=== PATIENT | female | born 1965 | race Caucasian/White ===

== ENCOUNTER → 2017-03-17 | Outpatient (CLI) | payer MEDICARE ==
--- NOTE | 2017-03-21 09:00 | MM ---
Reason for exam: screening (asymptomatic). Last mammogram was performed 2 years and 9 months ago. History: Family history of breast cancer in grandmother and breast cancer in cousin. Taking hormonal contraceptives for 6 months. Physical Findings: A clinical breast exam by your physician is recommended on an annual basis and results should be correlated with mammographic findings. MG Screening Mammo w CAD Bilateral CC and MLO view(s) were taken. Prior study comparison: June 02, 2014, bilateral MG screening mammo w CAD. July 04, 2012, bilateral digital screening mammo w/CAD. The breast tissue is heterogeneously dense. This may lower the sensitivity of mammography. Finding: There are stable typically benign masses in the upper outer quadrant of the right breast. No significant changes in finding since June 02, 2014 and July 04, 2012. ASSESSMENT: Benign, BI-RAD 2 RECOMMENDATION: Routine screening mammogram of both breasts in 1 year.
== END | disposition home or self-care (01) ==
LOC: RADMAMWWP 08:07
PROVIDERS: ATTEND Family Medicine
DX: Z12.31 Encounter for screening mammogram for malignant neoplasm of breast (principal)

== ENCOUNTER → 2017-08-30 | Outpatient (CLI) | payer MEDICARE | END | disposition home or self-care (01) | LOC: MMGSC 13:31 | PROVIDERS: ATTEND Family Medicine | DX: N39.0 Urinary tract infection, site not specified (principal) | CPT/HCPCS: 87086 ==

== ENCOUNTER → 2017-09-14 | Outpatient (CLI) | payer MEDICARE ==
--- NOTE | 2017-09-14 11:53 | MR ---
EXAMINATION TYPE: MR brain/cspine wo/w DATE OF EXAM: 09/14/2017 COMPARISON: Prior cervical MRI 08/30/2010, brain MRI 01/12/2010 HISTORY: headaches, dizziness, sergio weakness, ms TECHNIQUE: Multiplanar, multisequence images of the brain and cervical spine is performed without and with IV co ntrast, utilizing 7.5 mL intravenous Gadavist . FINDINGS: Cervical spine MRI: Multilevel spondylosis is again noted. There is retrolisthesis grade 1 C4-5, C5-6, there is loss of d isc height and signal at C4-5, C5-6 and C6-7 with endplate discogenic marrow signal change. Cervical vertebral bodies show preserved height. Cervical cord signal is normal, cervical medullary junction u nremarkable. No abnormal enhancement following contrast administration. C2-3: Lateral extension of endplate disc complex encroaches mildly on the foramina. No significant ce ntral stenosis or disc herniation. C3-4: Within normal limits C4-5: Posterior extension of endplate disc complex causes moderate to severe central canal stenosis, lateral extension endplate disc complex causes bilateral foraminal encroachment. There is a central p osterior disc herniation present contacting the anterior cervical cord. C5-6: Posterior extension of endplate disc complex causes moderate to severe central canal stenosis, lateral extension of endplate disc complex causes bilateral foraminal encroachment. There is an ante rior contact with the cervical cord due to posterior central disc herniation. C6-7: Posterior extension of endplate disc complex, posterior central disc herniation causes moderate central canal stenosis, there is contact with the anterior cervical cord due to the posterior centra l disc herniation. Lateral extension of endplate disc complex causes some foraminal encroachment bila terally. C7-T1: Circumferential posterior disc bulge causes mild anterior mass effect on the thecal sac. Later al extension endplate disc complex causes some foraminal encroachment bilaterally. IMPRESSION: Progression of patient's degenerative disc disease with multilevel disc herniations, cont act with the cervical cord. Brain MRI: Diffusion weighted images demonstrate no evidence of a recent infarct or other diffusion abnormality. There is no extra-axial fluid collection. There has been progression in the number of white matter in the interval. Largest left frontal lesion is stable measuring approximately 8 by by millimeters on axial image 18 and 9 mm in AP dimension on sagittal image 10, stable. Adjacent to the left lateral v entricle posteriorly there is a lesion measuring 11 mm x 6 mm x 2.1 cm on sagittal image 8, axial im age 16. Left temporal juxtacortical lesion is also stable measuring approximately 9 to 10 mm. The rig ht cerebral peduncle lesion seen on previous exam that measured 9 x 8 mm is not seen with certainty. No abnormal enhancement following contrast administration. There are approximately 10-20 lesions. Marcial e may be better visualized due to differences in technique. The ventricular system and cisternal spac es are normal in size and appearance. The brain volume is age appropriate. Midline structures demonstrate normal morphology. The craniocervical junction appears within normal limits. The dural venous sinuses appear patent. The visualized sinuses are clear and the globes are intact. IMPRESSION: Interval progression in number of lesions however there is improvement in the right middl e cerebellar peduncle lesion as compared to previous exam.
== END | disposition home or self-care (01) ==
LOC: RADMRIMAIN 09:15
PROVIDERS: ATTEND Psychiatry & Neurology Neurology
DX: G93.89 Other specified disorders of brain (principal); M50.30 Other cervical disc degeneration, unspecified cervical region; M50.20 Other cervical disc displacement, unspecified cervical region; G82.22 Paraplegia, incomplete; G35 Multiple sclerosis
CPT/HCPCS: 70553; 72156; A9581

== ENCOUNTER → 2017-09-15 | Outpatient (CLI) | payer MEDICARE ==
--- NOTE | 2017-09-15 12:25 | MR ---
MR thoracic spine with and without contrast HISTORY: G 37, multiple sclerosis, G 82.22, paraplegia Multiplanar multisequence and postcontrast images performed through the thoracic spine following 7.5 cc Gadavist IV. Correlation to prior thoracic MRI dated 02/02/2010 Thoracic vertebral bodies show preserved height, alignment, and bone marrow signal, hemangioma presen t at T8 vertebral body is stable in the superior endplate. There is no evident foraminal encroachment , spinal stenosis, or sizable disc herniation, mild disc bulge present at T10-11 causes only minimal anterior mass effect on the thecal sac. There is mild multilevel minimal disc bulge. Thoracic cord signal is remarkable for some possible increased signal on T2-weighted sequences dorsal aspect of the cord at approximately T8-9 level. Exam is not optimally performed for subtle changes o f cord signal due to [id number]. No abnormal enhancement following contrast administration. Question some abnormal density within the medial aspect of the right lower lobe, possibly atelectatic change. IMPRESSION: Possible signal change within the dorsal thoracic cord as described. Mild degenerative di sc disease.
== END | disposition home or self-care (01) ==
LOC: RADMRIMAIN 09:04
PROVIDERS: ATTEND Psychiatry & Neurology Neurology
DX: M51.34 Other intervertebral disc degeneration, thoracic region (principal); G82.22 Paraplegia, incomplete; G35 Multiple sclerosis
CPT/HCPCS: 72157; A9581

== ENCOUNTER → 2017-12-07 | Outpatient (CLI) | payer MEDICARE ==
[2017-12-07 18:35] LABS: Basophils % (A) 0 %; Eosinophils # (A) 0.4 k/uL (0-0.7); Eosinophils % (A) 5 %; HCT 40.8 % (34.0-46.0); HGB 13.3 gm/dL (11.4-16.0); Lymphocytes # (A) 2.2 k/uL (1.0-4.8); Lymphocytes % (A) 24 %; MCH 30.1 pg (25.0-35.0); MCHC 32.6 g/dL (31.0-37.0); MCV 92.1 fL (80.0-100.0); Mean Platelet Volume 8.4; Monocytes # (A) 0.5 k/uL (0-1.0); Monocytes % (A) 6 %; Neutrophils # (A) 5.9 k/uL (1.3-7.7); Neutrophils % (A) 64 %; Platelet Count 351 k/uL (150-450); RBC 4.43 m/uL (3.80-5.40); RDW 14.5 % (11.5-15.5); WBC 9.2 k/uL (3.8-10.6)
[2017-12-07 18:38] LABS: ALT 25 U/L (9-52); AST 24 U/L (14-36); Albumin 4.6 g/dL (3.5-5.0); Alkaline Phosphatase 73 U/L (38-126); Amylase 37 U/L (30-110); Anion Gap 14 mmol/L; Blood Urea Nitrogen 20 mg/dL (7-17); Carbon Dioxide 24 mmol/L (22-30); Chloride 105 mmol/L (98-107); Cholesterol 228 mg/dL (<200); Glucose 91 mg/dL (74-99); HDL Cholesterol 67 mg/dL (40-60); LDL Cholesterol,Calculated 128 mg/dL (0-99); Lipase 42 U/L (23-300); Potassium 4.4 mmol/L (3.5-5.1); Sodium 143 mmol/L (137-145); Total Bilirubin 0.5 mg/dL (0.2-1.3); Total Protein 7.7 g/dL (6.3-8.2); Triglycerides 165 mg/dL (<150)
[2017-12-07 18:46] LABS: T4, Free (Free Thyroxine) 0.89 ng/dL (0.78-2.19)
== END | disposition home or self-care (01) ==
LOC: MMGSC 10:53
PROVIDERS: ATTEND Family Medicine
DX: I10 Essential (primary) hypertension (principal); E78.5 Hyperlipidemia, unspecified; G35 Multiple sclerosis; R10.13 Epigastric pain
CPT/HCPCS: 36415; 80053; 80061; 82150; 83690; 84439; 84443; 85025

== ENCOUNTER 2018-03-02 09:28 | Day surgery (SDC) | payer MEDICARE ==
[2018-02-27 14:46] VITALS: BMI 30.9
[~2018-03-02 09:28] MED LIST: LACTATED RINGERS 1,000 ML IV SCH; LIDOCAINE 1% 20 ML VIAL (10MG/ML) FOR IV START INTRADERMA PRN
[2018-03-02 10:19] LABS: Glucose,Whole Blood 95 mg/dL (75-99)
[2018-03-02 10:21] VITALS: TEMP 99
[2018-03-02] MEDS ORDERED: LIDOCAINE 1% INJ 10MG/ML (20 ML MDV) ONE (10:52)
[2018-03-02] MEDS ORDERED: PROPOFOL 10 MG/ML 20 ML VIAL IV ONE (10:52)
--- NOTE | 2018-03-02 11:13 | P.PCN ---
Date of Procedure: 03/02/18 Procedure(s) Performed: BRIEF HISTORY: Patient is a 52-year-old pleasant white female, scheduled for an elective colonoscopy as a part of screening for colorectal neoplasia. PROCEDURE PERFORMED: Colonoscopy. PREOPERATIVE DIAGNOSIS: Screening for colon cancer. IV sedation per Anesthesia. PROCEDURE: After informed consent was obtained, the patient, was brought into the endoscopy unit. IV sedation was administered by Anesthesia under continuous monitoring. Digital rectal examination was normal. Initially the Olympus CF- 160 flexible video colonoscope was then inserted in the rectum, gradually advanced into the cecum without any difficulty. Careful examination was performed as the scope was gradually being withdrawn. Ileocecal valve and the appendiceal orifice were visualized and appeared normal. Prep was excellent. Mucosa of the cecum, ascending colon, transverse colon, descending colon, sigmoid colon, and rectum appeared normal. Retroflexion was performed in the rectum and no lesions were seen. The patient tolerated the procedure well. IMPRESSION: Normal-appearing colon from rectum to cecum with no evidence of colorectal neoplasia. RECOMMENDATIONS: Findings of this examination were discussed with the patient is a family. She was advised to have a repeat screening colonoscopy in 10 years.
[2018-03-02 11:17] VITALS: RESP 18
[2018-03-02 11:30] VITALS: BP 150/78; PULSE 78
== END 2018-03-02 12:11 | disposition home or self-care (01) ==
LOC: ORWHC2ENDO 09:28
PROVIDERS: ATTEND Internal Medicine Gastroenterology
DX: Z12.11 Encounter for screening for malignant neoplasm of colon (principal); E78.5 Hyperlipidemia, unspecified; E11.9 Type 2 diabetes mellitus without complications; G35 Multiple sclerosis; K21.9 Gastro-esophageal reflux disease without esophagitis; M79.7 Fibromyalgia; Z79.84 Long term (current) use of oral hypoglycemic drugs; Z79.899 Other long term (current) drug therapy
CPT/HCPCS: 84703; J2001; J2704; G0121

== ENCOUNTER → 2019-05-13 | Outpatient (CLI) | payer MEDICARE ==
--- NOTE | 2019-05-14 09:29 | MM ---
Reason for exam: screening (asymptomatic). Last mammogram was performed 2 years and 2 months ago. History: Family history of breast cancer in grandmother and breast cancer in cousin. Taking hormonal contraceptives for 6 months. Physical Findings: A clinical breast exam by your physician is recommended on an annual basis and results should be correlated with mammographic findings. MG Screening Mammo w CAD Bilateral CC and MLO view(s) were taken. Prior study comparison: March 17, 2017, bilateral MG screening mammo w CAD. June 02, 2014, bilateral MG screening mammo w CAD. The breast tissue is heterogeneously dense. This may lower the sensitivity of mammography. Focal asymmetry upper outer left breast, new. This finding is changed when compared with previous exams. ASSESSMENT: Incomplete: need additional imaging evaluation, BI-RAD 0 RECOMMENDATION: Special view mammogram of the left breast. If lesion persists on supplemental views, image directed ultrasound is recommended. [facility] will attempt to contact patient to return for supplemental views and ultrasound if indicated.
== END | disposition home or self-care (01) ==
LOC: RADMAMWWP 10:46
PROVIDERS: ATTEND Family Medicine
DX: Z12.31 Encounter for screening mammogram for malignant neoplasm of breast (principal)
CPT/HCPCS: 77067

== ENCOUNTER → 2019-05-27 | Outpatient (CLI) | payer MEDICARE ==
--- NOTE | 2019-05-27 13:12 | MM ---
Reason for exam: additional evaluation requested from abnormal screening. Last mammogram was performed less than 1 month ago. History: Family history of breast cancer in maternal grandmother at age 52 and breast cancer in cousin. Took hormonal contraceptives for 6 months. Physical Findings: Nurse did not find any significant physical abnormalities on exam. MG Work Up Mamm w CAD LT Spot compression CC, spot compression MLO, and LM view(s) were taken of the left breast. Prior study comparison: May 13, 2019, bilateral MG screening mammo w CAD. March 17, 2017, bilateral MG screening mammo w CAD. The breast tissue is heterogeneously dense. This may lower the sensitivity of mammography. Left upper outer quadrant middle depth focal asymmetry 5cm from nipple, approximately 7mm in size. These results were verbally communicated with the patient and result sheet given to the patient on 05/27/19 ASSESSMENT: Incomplete: need additional imaging evaluation, BI-RAD 0 RECOMMENDATION: Ultrasound of the left breast.
--- NOTE | 2019-05-27 13:14 | USB ---
Reason for exam: additional evaluation requested from abnormal screening. History: Family history of breast cancer in maternal grandmother at age 52 and breast cancer in cousin. Took hormonal contraceptives for 6 months. US Breast Workup Limited LT Left limited breast ultrasound including focal area of concern, retroareolar and axilla demonstrates a 1.0 x 1.0 x 0.5cm oval, clustered, cystic lesion at 12 o'clock, a 0.4 x 0.4 x 0.4cm oval, clustered, cystic lesion at 12 o'clock, a 0.7 x 1.3 x 0.6cm oval, cystic lesion at 1 o'clock, and a 2.4 x 2.1 x 0.8cm axilla node. Corresponds to mammogram. These results were verbally communicated with the patient and result sheet given to the patient on 05/27/19. ASSESSMENT: Benign, BI-RAD 2 RECOMMENDATION: Return to routine screening mammogram schedule for both breasts.
== END | disposition home or self-care (01) ==
LOC: RADMAMWWP 10:28
PROVIDERS: ATTEND Family Medicine
DX: R92.8 Other abnormal and inconclusive findings on diagnostic imaging of breast (principal)
CPT/HCPCS: 77065

== ENCOUNTER → 2020-04-09 | Outpatient (CLI) | payer MEDICARE ==
--- NOTE | 2020-04-09 15:11 | MR ---
EXAMINATION TYPE: MR brain wo con DATE OF EXAM: 04/09/2020 COMPARISON: MRI brain September 14, 2017. HISTORY: MS follow up TECHNIQUE: Multiplanar, multisequence imaging of the brain and brainstem is performed without IV cont rast. Demyelinating disease protocol. FINDINGS: FINDINGS: T2 Lesions Present : Yes Approximate Number of Lesions: Approximately 15 Locations Identified : Scattered Size of Reference Lesion(s): 1. 0.8 x 0.6 x 0.8 cm on axial image 18 and sagittal image 13 left frontal deep white matter lesions stable. 2 approximately 1.0 x 0.8 x 1.3 cm elongated left parietal temporal lesion near axial image 15 and sa gittal image 10 stable. Enhancing Lesion(s) Present: n/a T1 Hypointense Lesion(s) Present: Yes Change from Prior: Stable Diffusion weighted images demonstrate no evidence of a recent infarct or other diffusion abnormality. There is no worrisome extra-axial fluid collection. The ventricular system and cisternal spaces ar e normal in size and appearance. The brain volume is age appropriate. Midline structures demonstrate normal morphology. The craniocervical junction appears within normal limits. Normal vascular flow voids. The visualized sinuses are clear and the globes are intact. IMPRESSION: [id number] nonspecific white matter changes as detailed above likely on basis of kn own multiple sclerosis. No new lesions or significant interval change.
== END | disposition home or self-care (01) ==
LOC: RADMRIMAIN 14:22
PROVIDERS: ATTEND Psychiatry & Neurology Neurology
DX: R90.82 White matter disease, unspecified (principal)
CPT/HCPCS: 70551

== ENCOUNTER → 2021-08-10 | Outpatient (CLI) | payer MEDICARE ==
--- NOTE | 2021-08-11 11:12 | MM ---
Reason for exam: screening (asymptomatic). Last mammogram was performed 2 years and 2 months ago. History: Family history of breast cancer in maternal grandmother at age 52 and breast cancer in maternal cousin. Took hormonal contraceptives for 6 months. Physical Findings: A clinical breast exam by your physician is recommended on an annual basis and results should be correlated with mammographic findings. MG Screening Mammo w CAD Bilateral CC, MLO, and XCCL view(s) were taken. Prior study comparison: May 13, 2019, bilateral MG screening mammo w CAD. March 17, 2017, bilateral MG screening mammo w CAD. Finding: There are coarse heterogeneous, grouped/clustered calcifications in the right breast. Previous mammotome biopsy in the right breast. New finding since May 13, 2019 and March 17, 2017. ASSESSMENT: Incomplete: need additional imaging evaluation, BI-RAD 0 RECOMMENDATION: Special view mammogram of the right breast. [facility] will attempt to contact patient to return for supplemental views.
== END | disposition home or self-care (01) ==
LOC: RADMAMWWP 16:24
PROVIDERS: ATTEND Family Medicine
DX: Z12.31 Encounter for screening mammogram for malignant neoplasm of breast (principal); Z80.3 Family history of malignant neoplasm of breast
CPT/HCPCS: 77067

== ENCOUNTER → 2021-08-26 | Outpatient (CLI) | payer MEDICARE ==
--- NOTE | 2021-08-30 08:41 | MM ---
Reason for exam: additional evaluation requested from abnormal screening. Last mammogram was performed 1 month ago. History: Family history of breast cancer in maternal grandmother at age 52 and breast cancer in maternal cousin. Took hormonal contraceptives for 6 months. Physical Findings: Nurse did not find any significant physical abnormalities on exam. MG Work Up Mamm w CAD RT LM with magnification, CC with magnification, and LM view(s) were taken of the right breast. Prior study comparison: August 10, 2021, bilateral MG screening mammo w CAD. May 27, 2019, left breast MG work up mamm w CAD LT. The breast tissue is heterogeneously dense. This may lower the sensitivity of mammography. Large group of calcifications around 11 o'clock right breast. Either 2 or 3 site stereotactic biopsy. Calcifications span 4cm. These results were verbally communicated with the patient and result sheet given to the patient on 08/26/21. ASSESSMENT: Suspicious, BI-RAD 4 RECOMMENDATION: Stereotactic core biopsy of the right breast. (2 or 3 site biopsy anterior and posterior group) Called Dr. Garcia's office with mammographic findings and has scheduled an appointment for the patient with Dr. Arias. Office will call with appointment times. 3D stereotactic core biopsy to be performed at [facility]. PRELIMINARY REPORT CALLED AND FAXED TO DR. ARIAS ON 08/30/21.
== END | disposition home or self-care (01) ==
LOC: RADMAMWWP 10:18
PROVIDERS: ATTEND Family Medicine
DX: R92.8 Other abnormal and inconclusive findings on diagnostic imaging of breast (principal); Z80.3 Family history of malignant neoplasm of breast
CPT/HCPCS: 77065

== ENCOUNTER → 2021-11-05 | Outpatient (CLI) | payer MEDICARE ==
[2021-11-05 11:05] VITALS: BP 150/88; PULSE 86; RESP 18; TEMP 97.9
--- NOTE | 2021-11-05 11:52 | P.GSHP ---
History of Present Illness H&P Date: 11/05/21 Chief Complaint: atypical ductal hyperplasia on stereotactic core biopsy of the right breast Lauren is a 56-year-old white female who on routine screening mammogram was noted to have an area of calcification of concern in the right breast. She underwent stereotactic core biopsy and [id number] of 3 sites in the right breast. Site a revealed atypical ductal hyperplasia, site be revealed atypical ductal hyperplasia, and sites C reveal fibroadenomatous and fibrocystic changes. The patient prior to the procedure had not felt any lumps masses or nodules of concern in either breast. She is not complaining of any nipple discharge or skin changes. She did not had any recent trauma or infection in the breast. She did well with the biopsies. Bilateral screening mammogram was from [id number] this revealed coarse heterogeneous group clustered calcifications in the [place] [id number] had additional views of the right breast which revealed calcifications spanning 4 cm. These were around the 11 o'clock position of the right breast. BCP: 15-20 years; stopped 11 years ago hormones: none nicotine: none caffiene: 1 bottle of coke/day chocolate: none Family history: maternal grandmother: breast cancer; about age 50 Hormonal History: menarche: 18 breast fed: yes, first born at 21 menopause: perimenopausal LMP 3 months ago Surgical History: tonsil Medical History: Multiple sclerosis Transverse myelitis Psoriatic arthritis Hypothyroid Diet-controlled diabetes Social history: Nicotine: Negative Alcohol: Negative Drugs: Negative - Constitutional Constitutional: Denies chills, Denies fever - EENT Eyes: denies blurred vision, denies pain Ears: deny: decreased hearing, tinnitus Ears, nose, mouth and throat: Reports headache, Denies sore throat - Breasts Breasts: bilateral: as per HPI - Cardiovascular Cardiovascular: Denies chest pain, Denies shortness of breath - Respiratory Respiratory: Denies cough, Denies 7 - Gastrointestinal Gastrointestinal: Denies abdominal pain, Denies diarrhea, Denies nausea, Denies vomiting - Genitourinary (Female) Genitourinary: Denies dysuria, Denies hematuria - Menstruation Menstruation: Reports as per HPI - Musculoskeletal Comment: Multiple sclerosis, transverse myelitis, psoriatic arthritis Musculoskeletal: Reports as per HPI - Integumentary Integumentary: Denies pruritus, Denies rash - Neurological Neurological: Reports as per HPI - Psychiatric Psychiatric: Denies anxiety, Denies depression - Endocrine Endocrine: Reports as per HPI - Hematologic/Lymphatic Comment: none - Allergic/Immunologic Allergic/Immunologic: Reports seasonal allergies Past Medical History Past Medical History: Diabetes Mellitus, Fibromyalgia, Hyperlipidemia, Neurologic Disorder, Skin Disorder, Thyroid Disorder Additional Past Medical History / Comment(s): Psoriatic arthritis. MS. Hx. tranverse myelitis. "Heart skips a beat once in a blue [place].". new diagnosis of diabetes 04/09/19 History of Any Multi-Drug Resistant Organisms: None Reported Past Surgical History: Tonsillectomy Past Anesthesia/Blood Transfusion Reactions: No Reported Reaction Past Psychological History: No Psychological Hx Reported Smoking Status: Never smoker Past Alcohol Use History: None Reported Past Drug Use History: None Reported - Past Family History Mother Family Medical History: No Reported History Medications and Allergies Home Medications Medication Instructions Recorded Confirmed Type Butalb/Acetaminophen/Caffeine 1 each PO BID PRN 12/17/13 11/05/21 History [Fioricet 50-325-40 mg Tablet] Levothyroxine Sodium [Synthroid] 50 mcg PO DAILY 12/17/13 11/05/21 History Meloxicam 15 mg PO DAILY 12/17/13 11/05/21 History Methotrexate Sodium (Pf) 1 ml INJ WE 12/17/13 11/05/21 History [Methotrexate 250 mg/10 ml Vial] Omeprazole [PriLOSEC] 40 mg PO DAILY 12/17/13 11/05/21 History Oxybutynin Chloride [Oxybutynin 15 mg PO DAILY 12/17/13 11/05/21 History Chloride ER] SUMAtriptan SUCCINATE [Imitrex] 100 mg PO BID PRN 12/17/13 11/05/21 History Simvastatin [Zocor] 40 mg PO DAILY 12/17/13 11/05/21 History metFORMIN HCL 500 mg PO BID 12/17/13 11/05/21 History Baclofen [Lioresal] 10 mg PO QID 11/26/14 11/05/21 History Methylphenidate HCl [Concerta] 54 mg PO DAILY PRN 04/01/16 11/05/21 History Folic Acid 1 mg PO DAILY 02/27/18 11/05/21 History HYDROcodone/APAP 5-325MG [[place] 1 tab PO Q4HR PRN 02/27/18 11/05/21 History 5-325] Metoprolol Succinate (ER) [Toprol 50 mg PO DAILY 12/14/18 11/05/21 History Xl] Empagliflozin [Jardiance] 10 mg PO DAILY 11/05/21 11/05/21 History Allergies Allergy/AdvReac Type Severity Reaction Status Date / Time No Known Allergies Allergy Verified 11/05/21 11:01 Surgical - Exam Vital Signs Temp Pulse Resp BP Pulse Ox 97.9 F 86 18 150/88 98 11/05/21 11:02 11/05/21 11:02 11/05/21 11:02 11/05/21 11:02 11/05/21 11:02 BMI 31.8 - General no distress - Eyes normal ocular movement - ENT no hearing loss - Neck trachea midline - Respiratory normal respiratory effort, clear to auscultation - Cardiovascular Rhythm: regular Heart Sounds: normal: S1, S2 - Abdomen Abdomen: soft, non tender, no guarding, no rigid, no rebound - Integumentary normal turgor - Musculoskeletal uses a walker - Psychiatric oriented to time, oriented to person, oriented to place, speech is normal, memory intact Breast Exam: BRA: 38C inspection: Bilateral grade 2/3 ptosis, right breast slightly larger than left breast Palpation: Right breast: Multiple positional exam fibrocystic changes no discrete dominant masses or nodules of concern, 3 stereotactic core biopsy sites identified clean and dry no evidence of infection slight fullness near the area of the biopsies believed to be related to post biopsy changes Right axilla: No adenopathy of concern Left breast: Multi-positional exam fibrocystic changes no dominant masses or nodules of concern Left axilla: No adenopathy of concern Results Mammogram reviewed in detail with Dr. Gotti Pathology reviewed Assessment and Plan Assessment: Impression: Multiple sclerosis Transverse myelitis Psoriatic arthritis Hypothyroid Diet-controlled diabetes Surgical core biopsy 2 sites in the right breast with atypical hyperplasia third biopsy site benign Plan: needle localization of two areas in the right breast, done via a donut mastopexy, onco-plastic tissue transfer clearance form Dr. Ambrocio Skin benefits of the procedure been discussed with the patient. Risks include but are not limited to bleeding, infection, reaction to the anesthetic.. Concern were not removed and additional biopsy may be necessary. Additionally if this were to be a malignancy or precancer additional surgery may be needed. The patient understands and wishes to proceed. She understands the donut mastopexy she may have some decreased sensation to the nipple areolar area or some necrosis. She also understands that she will have asymmetry and wishes to proceed with this procedure. CC: Dr. Harrison
== END ==
LOC: WWCWWP 10:11
PROVIDERS: ATTEND Surgery
DX: N62 Hypertrophy of breast (principal); D24.1 Benign neoplasm of right breast; E03.9 Hypothyroidism, unspecified; G37.3 Acute transverse myelitis in demyelinating disease of central nervous system; L40.50 Arthropathic psoriasis, unspecified; E11.9 Type 2 diabetes mellitus without complications; E78.5 Hyperlipidemia, unspecified; Z79.890 Hormone replacement therapy; Z79.84 Long term (current) use of oral hypoglycemic drugs

== ENCOUNTER → 2021-12-03 | Outpatient (CLI) | payer MEDICARE ==
[2021-12-03 09:38] VITALS: BP 111/85; PULSE 87; RESP 17; TEMP 97.8
--- NOTE | 2021-12-03 09:55 | P.PN ---
Subjective Progress Note Date: 12/03/21 Principal diagnosis: atypical ductal hyperplasia Lauren is a 56-year-old white female who on routine screening mammogram was noted to have an area of calcification of concern in the right breast. She underwent stereotactic core biopsy on of 3 sites in the right breast. Site A revealed atypical ductal hyperplasia, site B revealed atypical ductal hyperplasia, and sites C reveal fibroadenomatous and fibrocystic changes. The patient prior to the procedure had not felt any lumps masses or nodules of concern in either breast. She was not complaining of any nipple discharge or skin changes. She did not had any recent trauma or infection in the breast. She did well with the biopsies. Bilateral screening mammogram was from [id number] this revealed coarse heterogeneous group clustered calcifications in the right breast. The patient subsequently on had additional views of the right breast which revealed calcifications spanning 4 cm. These were around the 11 o'clock position of the right breast. BCP: 15-20 years; stopped 11 years ago hormones: none nicotine: none caffiene: 1 bottle of coke/day chocolate: none Family history: maternal grandmother: breast cancer; about age 50 Hormonal History: menarche: 18 breast fed: yes, first born at 21 menopause: perimenopausal LMP 3 months ago Surgical History: tonsil Medical History: Multiple sclerosis Transverse myelitis Psoriatic arthritis Hypothyroid Diet-controlled diabetes Social history: Nicotine: Negative Alcohol: Negative Drugs: Negative - Constitutional Constitutional: Denies chills, Denies fever - EENT Eyes: denies blurred vision, denies pain Ears: deny: decreased hearing, tinnitus Ears, nose, mouth and throat: Reports headache, Denies sore throat - Breasts Breasts: bilateral: as per HPI - Cardiovascular Cardiovascular: Denies chest pain, Denies shortness of breath - Respiratory Respiratory: Denies cough - Gastrointestinal Gastrointestinal: Denies abdominal pain, Denies diarrhea, Denies nausea, Denies vomiting - Genitourinary (Female) Genitourinary: Denies dysuria, Denies hematuria - Menstruation Menstruation: Reports as per HPI - Musculoskeletal Comment: Multiple sclerosis, transverse myelitis, psoriatic arthritis Musculoskeletal: Reports as per HPI - Integumentary Integumentary: Denies pruritus, Denies rash - Neurological Neurological: Reports as per HPI - Psychiatric Psychiatric: Denies anxiety, Denies depression - Endocrine Endocrine: Reports as per HPI - Hematologic/Lymphatic Comment: none - Allergic/Immunologic Allergic/Immunologic: Reports seasonal allergies Objective - Vital Signs Vital signs: Vital Signs Temp 97.8 F 12/03/21 09:35 Pulse 87 12/03/21 09:35 Resp 17 12/03/21 09:35 BP 111/85 12/03/21 09:35 Pulse Ox 98 12/03/21 09:35 Intake & Output 12/02/21 12/03/21 12/03/21 18:59 06:59 18:59 Weight 83.915 kg - Exam BMI 31.8 - Constitutional General appearance: Present: cooperative - EENT Eyes: Present: EOMI ENT: Present: hearing grossly normal - Neck Neck: Present: normal ROM - Respiratory Respiratory: bilateral: CTA - Cardiovascular Rhythm: regular Heart sounds: normal: S1, S2 - Integumentary Integumentary: Present: normal turgor - Musculoskeletal Musculoskeletal Comment(s): uses a walker Musculoskeletal: Present: gait normal - Psychiatric Psychiatric: Present: A&O x's 3, appropriate affect, intact judgment & insight - Additional findings Additional findings: Breast Exam: BRA: 38C Inspection: bilateral grade 2/3 ptosis, right breast slightly larger yogesh left breast Palpation: right breast: multipositional exam no dominate [place] or nodules of concern, biopsy sites no infection right axilla: no adenopathy of concern left breast: multipositional exam no dominate [place] or nodules of concern left axilla: no adenopathy of concern Assessment and Plan Assessment: Impression: Multiple sclerosis Transverse myelitis Psoriatic arthritis Hypothyroid Diet-controlled diabetes core biopsy of two sites in the right breast atypical hyperplasia Plan: needle localization of two areas in the right breast, done via a donut mastopexy incision, possible onco-plastic tissue transfer 12:00 anterior secure tonya clip is site A Mid breast barbell-shaped clip this site B 10:00 posterior secure tonya clip is site C Site A and Site B are the 2 sites for which excision is going to be performed clearance from Dr. Ambrocio The patient is going to have a stress test done week, as per Dr. Cuevas. Risks and benefits of the procedure were discussed with the patient. She understands and wishes to proceed. Risks include but are not limited to bleeding, infection, reaction to the anesthetic. The risks that the area of concern may not be adequately sampled is noted and if this will the case it may be necessary to do further surgery. CC: Dr. Ambrocio
== END ==
LOC: WWCWWP 09:26
PROVIDERS: ATTEND Surgery
DX: N60.91 Unspecified benign mammary dysplasia of right breast (principal); G35 Multiple sclerosis; E03.9 Hypothyroidism, unspecified; E11.9 Type 2 diabetes mellitus without complications; L40.50 Arthropathic psoriasis, unspecified

== ENCOUNTER → 2021-12-09 | Outpatient (CLI) | payer MEDICARE ==
[~2021-12-09] MED LIST changes: -LACTATED RINGERS 1,000 ML IV SCH; -LIDOCAINE 1% 20 ML VIAL (10MG/ML) FOR IV START INTRADERMA PRN; +REGADENOSON 0.4 MG/5 ML SYRINGE IV ONE
--- NOTE | 2021-12-09 11:31 | CA ---
Lexiscan Nuclear Stress Test Report Name: Lauren Darden Exam Date: 12/09/2021 10:37 Exam Location: [facility] Stress Ht (in): 64 Wt (lb): 185 BSA: 1.89 Ordering Phys: Lety Garcia MD Referring Phys: MAR, Technologist: Arturo Preston Age: 56 Gender: F : 1965 Procedure CPT: Indications: R94.31 ABNORMAL EKG ICD-10 Codes: Patient History: ABNORMAL EKG Medications: Meds past 24 hrs: Pretest Chest Pain: STRESS TEST Lexiscan Protocol Exercise Duration (min:sec): 02:[address] Depressions (mm): Angina Score: Price Score: Resting HR (bpm): 97 Peak HR (bpm): 133 Resting BP (mmHg): 130 / 74 Peak BP (mmHg): 157 / 76 MPHR: 166 Target HR: 141 % MPHR: 80 METS: 1.0 Total Dose: Peak Dose: Atropine: Double Product: 40262 BP Response: Stress Termination: Stress Symptoms: SHORT OF BREATH, JAW DISCOMFORT Stress Summary: ECG ANALYSIS Resting ECG: Stress ECG: CONCLUSIONS Baseline EKG revealed normal sinus rhythm with minor nonspecific ST and T wave abnormality. With Lexiscan administration of the heart rate changed from 88-134 bpm. Patient seems to have been a short run of paroxysmal atrial tachycardia that seemed to persist on 2 EKGs and then came back to sinus rhythm at [address] segment changes.. EKG part of the stress test is probably considered abnormal artery local. There were minor EKG changes of a nonspecific type and also patient developed paroxysmal atrial tachycardia.. The nuclear scan results which are more pertinent will be reported by the radiologist Dr. Andi Meyer MD (Electronically Signed) Final Date: 09 December 2021 11:30
--- NOTE | 2021-12-09 12:41 | NM ---
EXAMINATION TYPE: NM stress lexiscan cardiolite DATE OF EXAM: 12/09/2021 COMPARISON: None HISTORY: Abnormal EKG TECHNIQUE: After the intravenous administration of 9.55 mCi Tc 99m Sestamibi - Cardiolite resting SP ECT images acquired 50 minutes post injection. The patient received 0.4mg Lexiscan, 25.5 mCi Tc 99m Sestamibi - Stress images obtained [address] injection FINDINGS: Review of stress and rest SPECT images demonstrates no distinct perfusion abnormality. Gated analysi s shows normal wall motion with an estimated left ventricular ejection fraction of 66 %. IMPRESSION: No scintigraphic evidence for reversible ischemia. Consider echocardiographic correlation for elevate d ejection fraction
== END | disposition home or self-care (01) ==
LOC: RADNMMAIN 09:02
PROVIDERS: ATTEND Family Medicine
DX: I47.1 Supraventricular tachycardia (principal)
CPT/HCPCS: 93017; 78452; A9500; J2785

== ENCOUNTER 2021-12-14 08:34 | Day surgery (SDC) | payer MEDICARE ==
--- NOTE | 2021-12-10 08:06 | P.PN ---
Subjective Progress Note Date: 12/10/21 Principal diagnosis: Atypical ductal hyperplasia on core biopsy of the right breast H&P Date: 11/05/21 Chief Complaint: atypical ductal hyperplasia on stereotactic core biopsy of the right breast Lauren is a 56-year-old white female who on routine screening mammogram was noted to have an area of calcification of concern in the right breast. [place] [id number] of 3 sites in the right breast. Site A revealed atypical ductal hyperplasia, site B revealed atypical ductal hyperplasia, and sites C reveal fibroadenomatous and fibrocystic changes. The patient prior to the procedure had not felt any lumps masses or nodules of concern in either breast. She is not complaining of any nipple discharge or skin changes. She did not had any recent trauma or infection in the breast. She did well with the biopsies. Bilateral screening mammogram was from [id number] this revealed coarse heterogeneous group clustered calcifications in the [place] [address] had additional views of the right breast which revealed calcifications spanning 4 cm. These were around the 11 o'clock position of the right breast. BCP: 15-20 years; stopped 11 years ago hormones: none nicotine: none caffiene: 1 bottle of coke/day chocolate: none Family history: maternal grandmother: breast cancer; about age 50 Hormonal History: menarche: 18 breast fed: yes, first born at 21 menopause: perimenopausal LMP 3 months ago Surgical History: tonsil Medical History: Multiple sclerosis Transverse myelitis Psoriatic arthritis Hypothyroid Diet-controlled diabetes Social history: Nicotine: Negative Alcohol: Negative Drugs: Negative - Constitutional Constitutional: Denies chills, Denies fever - EENT Eyes: denies blurred vision, denies pain Ears: deny: decreased hearing, tinnitus Ears, nose, mouth and throat: Reports headache, Denies sore throat - Breasts Breasts: bilateral: as per HPI - Cardiovascular Cardiovascular: Denies chest pain, Denies shortness of breath - Respiratory Respiratory: Denies cough - Gastrointestinal Gastrointestinal: Denies abdominal pain, Denies diarrhea, Denies nausea, Denies vomiting - Genitourinary (Female) Genitourinary: Denies dysuria, Denies hematuria - Menstruation Menstruation: Reports as per HPI - Musculoskeletal Comment: Multiple sclerosis, transverse myelitis, psoriatic arthritis Musculoskeletal: Reports as per HPI - Integumentary Integumentary: Denies pruritus, Denies rash - Neurological Neurological: Reports as per HPI - Psychiatric Psychiatric: Denies anxiety, Denies depression - Endocrine Endocrine: Reports as per HPI - Hematologic/Lymphatic Comment: none - Allergic/Immunologic Allergic/Immunologic: Reports seasonal allergies Past Medical History Past Medical History: Diabetes Mellitus, Fibromyalgia, Hyperlipidemia, Neurologic Disorder, Skin Disorder, Thyroid Disorder Additional Past Medical History / Comment(s): Psoriatic arthritis. MS. Hx. tranverse myelitis. "Heart skips a beat once in a blue [place].". new diagnosis of diabetes 04/09/19 History of Any Multi-Drug Resistant Organisms: None Reported Past Surgical History: Tonsillectomy Past Anesthesia/Blood Transfusion Reactions: No Reported Reaction Past Psychological History: No Psychological Hx Reported Smoking Status: Never smoker Past Alcohol Use History: None Reported Past Drug Use History: None Reported - Past Family History Mother Family Medical History: No Reported History Medications and Allergies Home Medications Medication Instructions Recorded Confirmed Type Butalb/Acetaminophen/Caffeine 1 each PO BID PRN 12/17/13 11/05/21 History [Fioricet 50-325-40 mg Tablet] Levothyroxine Sodium [Synthroid] 50 mcg PO DAILY 12/17/13 11/05/21 History Meloxicam 15 mg PO DAILY 12/17/13 11/05/21 History Methotrexate Sodium (Pf) 1 ml INJ WE 12/17/13 11/05/21 History [Methotrexate 250 mg/10 ml Vial] Omeprazole [PriLOSEC] 40 mg PO DAILY 12/17/13 11/05/21 History Oxybutynin Chloride [Oxybutynin 15 mg PO DAILY 12/17/13 11/05/21 History Chloride ER] SUMAtriptan SUCCINATE [Imitrex] 100 mg PO BID PRN 12/17/13 11/05/21 History Simvastatin [Zocor] 40 mg PO DAILY 12/17/13 11/05/21 History metFORMIN HCL 500 mg PO BID 12/17/13 11/05/21 History Baclofen [Lioresal] 10 mg PO QID 11/26/14 11/05/21 History Methylphenidate HCl [Concerta] 54 mg PO DAILY PRN 04/01/16 11/05/21 History Folic Acid 1 mg PO DAILY 02/27/18 11/05/21 History HYDROcodone/APAP 5-325MG [[place] 1 tab PO Q4HR PRN 02/27/18 11/05/21 History 5-325] Metoprolol Succinate (ER) [Toprol 50 mg PO DAILY 12/14/18 11/05/21 History Xl] Empagliflozin [Jardiance] 10 mg PO DAILY 11/05/21 11/05/21 History Allergies Allergy/AdvReac Type Severity Reaction Status Date / Time No Known Allergies Allergy Verified 11/05/21 11:01 Assessment and Plan Assessment: Impression: Multiple sclerosis Transverse myelitis Psoriatic arthritis Hypothyroid Diet-controlled diabetes Surgical core biopsy 2 sites in the right breast with atypical hyperplasia third biopsy site benign Plan: needle localization of two areas in the right breast, done via a donut mastopexy, onco-plastic tissue transfer clearance form Dr. Ambrocio Skin benefits of the procedure been discussed with the patient. Risks include but are not limited to bleeding, infection, reaction to the anesthetic.. Concern were not removed and additional biopsy may be necessary. Additionally if this were to be a malignancy or precancer additional surgery may be needed. The patient understands and wishes to proceed. She understands the donut mastopexy she may have some decreased sensation to the nipple areolar area or some necrosis. She also understands that she will have asymmetry and wishes to proceed with this procedure. CC: Dr. Harrison Additional CC's: Lety Garcia Objective - Constitutional General appearance: Present: cooperative - EENT Eyes: Present: EOMI - Neck Neck: Present: normal ROM - Respiratory Respiratory: bilateral: CTA - Cardiovascular Heart sounds: normal: S1, S2 - Gastrointestinal General gastrointestinal: Present: soft - Integumentary Integumentary: Present: normal turgor - Musculoskeletal Musculoskeletal Comment(s): uses a walker - Psychiatric Psychiatric: Present: A&O x's 3, appropriate affect, intact judgment & insight - Additional findings Additional findings: Breast Exam: BRA: 38C inspection: Bilateral grade 2/3 ptosis, right breast slightly larger than left breast Palpation: Right breast: Multiple positional exam fibrocystic changes no discrete dominant masses or nodules of concern, 3 stereotactic core biopsy sites identified clean and dry no evidence of infection slight fullness near the area of the biopsies believed to be related to post biopsy changes Right axilla: No adenopathy of concern Left breast: Multi-positional exam fibrocystic changes no dominant masses or nodules of concern Left axilla: No adenopathy of concern Assessment and Plan Assessment: Assessment and Plan Assessment: Impression: Multiple sclerosis Transverse myelitis Psoriatic arthritis Hypothyroid Diet-controlled diabetes Surgical core biopsy 2 sites in the right breast with atypical hyperplasia third biopsy site benign Plan: needle localization of two areas in the right breast, done via a donut mastopexy, onco-plastic tissue transfer clearance form Dr. Ambrocio 12:00 anterior secure tonya clip this site a Mid-breast barbell-shaped clip this site B 10:00 posterior secure tonya clip is site C Site a inside beer the 2 sites for which excision is going to be performed Skin benefits of the procedure been discussed with the patient. Risks include but are not limited to bleeding, infection, reaction to the anesthetic.. Concern were not removed and additional biopsy may be necessary. Additionally if this were to be a malignancy or precancer additional surgery may be needed. The patient understands and wishes to proceed. She understands the donut mastopexy she may have some decreased sensation to the nipple areolar area or some necrosis. She also understands that she will have asymmetry and wishes to proceed with this procedure. awaiting results of stress test CC: Dr. Harrison
[2021-12-10 12:36] VITALS: BMI 31.7
[~2021-12-14 08:34] MED LIST changes: +DEXAMETHASONE SOD PHOSPHATE 4 MG/ML 1 ML VIAL IV ONE; +HEPARIN SODIUM,PORCINE/PF 5,000 UNIT/0.5 ML SYRINGE SQ PRN; +HYDROmorphone 0.5 MG/0.5 ML SYRINGE IVP PRN; +LACTATED RINGERS 1,000 ML IV SCH; +LIDOCAINE 1% (10MG/ML) FOR IV START INTRADERMA PRN; +MIDAZOLAM 2 MG/2 ML VIAL IV PRN; +ONDANSETRON 4 MG/2 ML VIAL IVP PRN; +Pre Op ABX Message 1 EACH MISC MISCELLANE ONE; -REGADENOSON 0.4 MG/5 ML SYRINGE IV ONE; +SCOPOLAMINE 1 MG/72 HR PATCH TRANSDERM ONE
[2021-12-14 09:22] LABS: Glucose,Whole Blood 130 mg/dL (75-99)
[2021-12-14] MEDS ORDERED: ALPRAZolam 0.5 MG TAB ONE (09:36)
[2021-12-14] MEDS ORDERED: ALPRAZolam 0.5 MG TAB PO ONE (09:37)
[2021-12-14] MEDS ORDERED: LIDOCAINE 1% INJ 10MG/ML (20 ML MDV) SQ ONE ×3 (10:10→13:17)
[2021-12-14] MEDS ORDERED: SUCCINYLCHOLINE CHLORIDE 100 MG/5 ML SYR IV ONE (11:38)
[2021-12-14] MEDS ORDERED: PROPOFOL 10 MG/ML 20 ML VIAL IV ONE (11:38)
[2021-12-14] MEDS ORDERED: LIDOCAINE 2% INJ 20 MG/ML (2 ML VIAL) ONE (11:38)
[2021-12-14] MEDS ORDERED: fentaNYL (PF) 50 MCG/ML 2 ML AMP ONE (11:38)
[2021-12-14] MEDS ORDERED: MIDAZOLAM 2 MG/2 ML VIAL ONE (11:38)
[2021-12-14] MEDS ORDERED: SODIUM CHLORIDE 0.9% 50 ML with ceFAZolin 2,000 MG IV ONE ×2 (11:42)
--- NOTE | 2021-12-14 13:09 | MM ---
EXAM: Needle localization with wire placement. CLINICAL HISTORY: Biopsy-proven ADH 2 levels in the right breast TECHNIQUE: Needle localization with wire placement and surgical excision of 2 areas of concern in the right breast. COMPARISON: Prior outside mammogram October 21, 2021 and older studies FINDINGS: The procedure of needle localization with wire placement and than surgical excision was exp lained to the patient. Benefits, alternatives, and risks were discussed. An informed consent was th en obtained. Imaging is reviewed prior to procedure. Atypical results involve the anterior and central clip with b enign results involving the posterior clip. Shortest pathway for procedure was chosen. Shortest path way was cranial approach. The overlying skin was prepped and draped in usual sterile fashion. Lidocai ne is used as anesthetic into the skin and subcutaneous tissue up to the level of area of concern. A 5 cm needle was used for the anterior clip and a 7 cm needle was used for the middle clip. It was p laced via a cranial to caudal approach under mammographic guidance. Subsequent 90 degrees mammogram show the needles to be in satisfactory position relative to the targeted area. At this point, wires was placed and the needles were withdrawn. The wires was fixed to patient's skin. Images were marke d for surgeon. The patient tolerated the procedure well without any immediate complication. The patient was kept in the radiology department for short stay after the procedure and then taken to surgery for surgical e xcision. Targeted biopsy clips and wires are identified in single specimen mammogram. The patient wa s kept in hospital for short stay after the procedure and then discharged home in stable condition. IMPRESSION: Successful, uncomplicated needle localization with wire placement and surgical excision o f 2 areas of concern targeted biopsy clips in the right breast, full pathology results to follow.
--- NOTE | 2021-12-14 13:22 | P.PCN ---
Date of Procedure: 12/14/21 Preoperative Diagnosis: 2 areas of atypia on core biopsy of the right breast Postoperative Diagnosis: Same Procedure(s) Performed: Needle localization of 2 areas of concern on the right breast, excisional biopsy, crescent mastopexy, onco-plastic tissue transfer 56.75 cm Anesthesia: KARENA Surgeon: Lacie Arias Estimated Blood Loss (ml): 20 IV fluids (ml): 700 Pathology: other (Breast tissue) Condition: stable Disposition: same day Indications for Procedure: Core biopsy revealing atypia of 2 sites in the right breast Operative Findings: Dense breast tissue Description of Procedure: Lauren is a 56-year-old white female who underwent core biopsy of 3 areas of concern in the right breast. Then revealed atypia. She is going to undergo a right breast needle localization of the 2 areas of atypia with resection in the operating room. The patient was first seen in the radiology department. Needle localization of the 2 areas of atypia was performed. The patient was then brought to the p reoperative area. In the preoperative area she was marked for a mastopexy. The elevation of the areolar was 2 cm up from the meridian line. Following this the patient was brought to the operative suite. Following induction of anesthesia the right breast was prepped and draped in a sterile fashion. A crescent mastopexy incision was utilized. Was not necessary to do a total doughnut mastopexy. The skin was de-epithelialized. The parenchyma of the breast was entered at the superior aspect of the incision. This was dissected to the 2 shafts of the needles. The surrounding tissue was excised. Excision occurred down to the area of the pectoralis muscle. The tissue excised was 5.2 x 2.5 cm 413.75 cm. Following this the specimen was painted for orientation and radiograph revealed the areas of concern about removed. The wound was well irrigated. Titanium clips were placed. A medial patellar was performed which was 7 cm x 4 cm. A lateral patellar was formed which is 5 cm x 3 cm. The wound was again examined for hemostasis. Surgicel and pyriform was placed. After assured that hemostasis was attained the 2 pillars were brought together to close the defect using 3-0 Vicryl suture. The mastopexy incision was then closed in layers using 3-0 Vicryl suture followed by 4-0 Monocryl. This was followed by a 4-0 nylon suture. All instrument and sponge counts were correct at the end of the case.
--- NOTE | 2021-12-14 13:23 | P.DS ---
Providers Attending physician: Lacie Arias Primary care physician: Lety Garcia Plan - Discharge Summary Discharge Rx Participant: No New Discharge Prescriptions: No Action Levothyroxine Sodium [Synthroid] 50 mcg PO DAILY Meloxicam 15 mg PO DAILY Oxybutynin Chloride [Oxybutynin Chloride ER] 15 mg PO DAILY Simvastatin [Zocor] 40 mg PO DAILY Butalb/Acetaminophen/Caffeine [Fioricet 50-325-40 mg Tablet] 1 each PO BID PRN PRN Reason: Headache SUMAtriptan SUCCINATE [Imitrex] 100 mg PO BID PRN PRN Reason: Migraine Headache Methotrexate Sodium (Pf) [Methotrexate 250 mg/10 ml Vial] 1 ml INJ WE Omeprazole [PriLOSEC] 40 mg PO DAILY Baclofen [Lioresal] 10 mg PO QID Methylphenidate HCl [Concerta] 54 mg PO DAILY PRN PRN Reason: See Comments Folic Acid 1 mg PO DAILY HYDROcodone/APAP 5-325MG [Sidney 5-325] 1 tab PO Q4HR PRN PRN Reason: Pain Metoprolol Succinate (ER) [Toprol Xl] 50 mg PO DAILY sitaGLIPtin [Januvia] 50 mg PO DAILY metFORMIN HCL [Glucophage] 1,000 mg PO BID Discharge Medication List Butalb/Acetaminophen/Caffeine [Fioricet 50-325-40 mg Tablet] 1 each PO BID PRN 12/17/13 [History] Levothyroxine Sodium [Synthroid] 50 mcg PO DAILY 12/17/13 [History] Meloxicam 15 mg PO DAILY 12/17/13 [History] Methotrexate Sodium (Pf) [Methotrexate 250 mg/10 ml Vial] 1 ml INJ WE 12/17/13 [History] Omeprazole [PriLOSEC] 40 mg PO DAILY 12/17/13 [History] Oxybutynin Chloride [Oxybutynin Chloride ER] 15 mg PO DAILY 12/17/13 [History] SUMAtriptan SUCCINATE [Imitrex] 100 mg PO BID PRN 12/17/13 [History] Simvastatin [Zocor] 40 mg PO DAILY 12/17/13 [History] Baclofen [Lioresal] 10 mg PO QID 11/26/14 [History] Methylphenidate HCl [Concerta] 54 mg PO DAILY PRN 04/01/16 [History] Folic Acid 1 mg PO DAILY 02/27/18 [History] HYDROcodone/APAP 5-325MG [S[place]ney 5-325] 1 tab PO Q4HR PRN 02/27/18 [History] Metoprolol Succinate (ER) [Toprol Xl] 50 mg PO DAILY 12/14/18 [History] metFORMIN HCL [Glucophage] 1,000 mg PO BID 12/10/21 [History] sitaGLIPtin [Januvia] 50 mg PO DAILY 12/10/21 [History] Follow up Appointment(s)/Referral(s): Lacie Arias MD [STAFF PHYSICIAN] - 12/23/21 1:40 pm Activity/Diet/Wound Care/Special Instructions: May shower after [address] until seen by Dr. Pyle Wear bra at all times Discharge Disposition: HOME SELF-CARE
[2021-12-14 13:46] VITALS: TEMP 97.4
[2021-12-14 14:00] VITALS: RESP 16
[2021-12-14 15:30] VITALS: BP 128/81; PULSE 68
== END 2021-12-14 15:51 | disposition home or self-care (01) ==
LOC: OR 08:34
PROVIDERS: ATTEND Surgery
DX: N60.91 Unspecified benign mammary dysplasia of right breast (principal); E03.9 Hypothyroidism, unspecified; E11.9 Type 2 diabetes mellitus without complications; E78.5 Hyperlipidemia, unspecified; G35 Multiple sclerosis; L40.50 Arthropathic psoriasis, unspecified; M79.7 Fibromyalgia; Z79.1 Long term (current) use of non-steroidal anti-inflammatories (NSAID); Z79.84 Long term (current) use of oral hypoglycemic drugs; Z79.899 Other long term (current) drug therapy; Z80.3 Family history of malignant neoplasm of breast
CPT/HCPCS: 19281; 19282; 14001; 19125; 19316; 81025; 88307; 76098; C1819 ×2; J2250; J1100; J2405; J0690; J2001 ×2; J3010; J0330; J2704; J1170; J1644

== ENCOUNTER → 2021-12-23 | Outpatient (CLI) | payer MEDICARE ==
[2021-12-23 13:56] VITALS: BP 137/75; PULSE 81; RESP 17; TEMP 98.9
--- NOTE | 2021-12-23 14:07 | P.PN ---
Progress Note - Text Progress Note Date: 12/23/21 Ivelisse is a 56 year old white female status post right breast lumpectomy on 12-14-21 which was benign. Pathology revealed flat epithelial atypia, margins negative, focal atypical lobular hyperplasia background fibrocystic changes. Exam: Lungs: Clear Heart: Regular rate and rhythm Incision: Clean and dry with some mild ecchymosis Impression: Patient doing well postop Plan: Suture removal Repeat right breast mammogram in 6 months with physician exam at that time CC: Dr. Garcia
== END ==
LOC: WWCWWP 13:29
PROVIDERS: ATTEND Surgery
DX: N60.91 Unspecified benign mammary dysplasia of right breast (principal)

== ENCOUNTER → 2022-04-29 | Outpatient (CLI) | payer MEDICARE ==
[2022-04-29 12:50] VITALS: BP 139/87; PULSE 73; RESP 16; TEMP 98.1
--- NOTE | 2022-04-29 12:59 | P.PN ---
Subjective Progress Note Date: 04/29/22 Principal diagnosis: flat epithelial atypia/atypical hyperplasia right breast atypical ductal hyperplasia Lauren is a 56-year-old white female who on routine screening mammogram was noted to have an area of calcification of concern in the right breast. She underwent stereotactic core biopsy on of 3 sites in the right breast. Site A revealed atypical ductal hyperplasia, site B revealed atypical ductal hyperplasia, and sites C reveal fibroadenomatous and fibrocystic changes. The patient prior to the procedure had not felt any lumps masses or nodules of concern in either breast. She was not complaining of any nipple discharge or skin changes. She did not had any recent trauma or infection in the breast. She did well with the biopsies. Bilateral screening mammogram was from [id number] revealed coarse heterogeneous group clustered calcifications in the right breast. The patient subsequently on had additional views of the right breast which revealed calcifications spanning 4 cm. These were around the 11 o'clock position of the right breast. She had a right breast needle localization and lumpectomh on 12-14-21. Her pathology revealed Flat epithelial atypia, and focal ALH. Both stero biopsy sites of concern were removed. She noted a lump at the site of the biopsy for about 3 months. It flucuates in size. It is not tender. She has not had any fever or chills. BCP: 15-20 years; stopped 11 years ago hormones: none nicotine: none caffiene: 1 bottle of coke/day chocolate: none Family history: maternal grandmother: breast cancer; about age 50 Hormonal History: menarche: 18 breast fed: yes, first born at 21 menopause: perimenopausal LMP 3 months ago Surgical History: tonsil Medical History: Multiple sclerosis Transverse myelitis Psoriatic arthritis Hypothyroid Diet-controlled diabetes Social history: Nicotine: Negative Alcohol: Negative Drugs: Negative - Constitutional Constitutional: Denies chills, Denies fever - EENT Eyes: denies blurred vision, denies pain Ears: deny: decreased hearing, tinnitus Ears, nose, mouth and throat: Reports headache, Denies sore throat - Breasts Breasts: bilateral: as per HPI - Cardiovascular Cardiovascular: Denies chest pain, Denies shortness of breath - Respiratory Respiratory: Denies cough - Gastrointestinal Gastrointestinal: Denies abdominal pain, Denies diarrhea, Denies nausea, Denies vomiting - Genitourinary (Female) Genitourinary: Denies dysuria, Denies hematuria - Menstruation Menstruation: Reports as per HPI - Musculoskeletal Comment: Multiple sclerosis, transverse myelitis, psoriatic arthritis Musculoskeletal: Reports as per HPI - Integumentary Integumentary: Denies pruritus, Denies rash - Neurological Neurological: Reports as per HPI - Psychiatric Psychiatric: Denies anxiety, Denies depression - Endocrine Endocrine: Reports as per HPI - Hematologic/Lymphatic Comment: none - Allergic/Immunologic Allergic/Immunologic: Reports seasonal allergies Objective - Constitutional General appearance: Present: cooperative - EENT Eyes: Present: EOMI ENT: Present: hearing grossly normal - Neck Neck: Present: normal ROM - Respiratory Respiratory: bilateral: CTA - Cardiovascular Rhythm: regular Heart sounds: normal: S1, S2 - Integumentary Integumentary: Present: normal turgor - Musculoskeletal Musculoskeletal Comment(s): uses a walker - Psychiatric Psychiatric: Present: A&O x's 3, appropriate affect, intact judgment & insight - Additional findings Additional findings: Breast Exam: BRA: 38C Inspection: fulness right breast 12 o'clock position right breast, well-healed scar right breast from prior surgery, right grade 2 ptosis, left grade 3 ptosis The patient: Right breast: Multiple positional exam fibrocystic changes, well-healed scar from prior surgery, at the 12 o'clock position is approximately a 3 x 4 cm area of fullness corresponding to most likely a lipoma Right axilla: No adenopathy of concern Left breast: Multi-positional exam fibrocystic changes no dominant masses or nodules of concern Left axilla: No adenopathy of concern Assessment and Plan Assessment: Impression: Multiple sclerosis Transverse myelitis Psoriatic arthritis Hypothyroid Diet-controlled diabetes Probable seroma right breast 12 o'clock position History of atypical hyperplasia and flat epithelial atypia Plan: I have discussed with the patient the option of attempting aspiration of this site versus get an ultrasound for she would like an attempted aspiration. Risk of the procedure include but are not limited to bleeding infection or recurrence of the seroma. She understands that this does not resolve we will get an ultrasound to further evaluate the area. Procedure: The area of concern in the right breast was prepped using alcohol. An 18-gauge needle on a 20 mL syringe was inserted into the area of fullness. 45 mL of straw-colored fluid was removed. The patient tolerated the procedure without difficulty. Patient a follow-up in June with bilateral mammogram. Patient to follow up sooner if any questions or concerns I have discussed with the patient that it is possible that the seroma will recur and if it is bothering her than we would reaspirated. CC: Dr. Garcia
== END ==
LOC: WWCWWP 12:35
PROVIDERS: ATTEND Surgery
DX: Z53.9 Procedure and treatment not carried out, unspecified reason (principal)

== ENCOUNTER → 2022-06-30 | Outpatient (CLI) | payer MEDICARE ==
--- NOTE | 2022-06-30 10:12 | P.PN ---
Subjective Progress Note Date: 06/30/22 Principal diagnosis: Flat epithelial atypia/atypical lobular hyperplasia right breast flat epithelial atypia/atypical hyperplasia right breast atypical ductal hyperplasia Lauren is a 56-year-old white female who on routine screening mammogram was noted to have an area of calcification of concern in the right breast. She underwent stereotactic core biopsy on of 3 sites in the right breast. Site A revealed atypical ductal hyperplasia, site B revealed atypical ductal hyperplasia, and sites C reveal fibroadenomatous and fibrocystic changes. The patient prior to the procedure had not felt any lumps masses or nodules of concern in either breast. She was not complaining of any nipple discharge or skin changes. She did not had any recent trauma or infection in the breast. She did well with the biopsies. Bilateral screening mammogram was from [id number] revealed coarse heterogeneous group clustered calcifications in the right breast. The patient subsequently on had additional views of the right breast which revealed calcifications spanning 4 cm. These were around the 11 o'clock position of the right breast. She had a right breast needle localization and lumpectomy on 12-14-21. Her pathology revealed Flat epithelial atypia, and focal ALH. Both stero biopsy sites of concern were removed. She noted a lump at the site of the biopsy for about 3 months. It flucuates in size. It is not tender. She has not had any fever or chills. She had a bilateral mammogram on 06-30-22 which did not reveal any lesions of concern in the left breast, she did have some postprocedure changes in the right breast repeat right breast mammogram in 6 months was recommended. She was seen and evaluated on and at that time a seroma was noted in the right breast biopsy site. This was aspirated and approximately 45 mL of straw- colored fluid was removed. It has returned however it is decreased in size and is not bothering the patient at this time. BCP: 15-20 years; stopped 11 years ago hormones: none nicotine: none caffiene: 1 bottle of coke/day chocolate: none Family history: maternal grandmother: breast cancer; about age 50 Hormonal History: menarche: 18 breast fed: yes, first born at 21 menopause: perimenopausal LMP 3 months ago Surgical History: tonsil Medical History: Multiple sclerosis Transverse myelitis Psoriatic arthritis Hypothyroid Diet-controlled diabetes Social history: Nicotine: Negative Alcohol: Negative Drugs: Negative - Constitutional Constitutional: Denies chills, Denies fever - EENT Eyes: denies blurred vision, denies pain Ears: deny: decreased hearing, tinnitus Ears, nose, mouth and throat: Reports headache, Denies sore throat - Breasts Breasts: bilateral: as per HPI - Cardiovascular Cardiovascular: Denies chest pain, Denies shortness of breath - Respiratory Respiratory: Denies cough - Gastrointestinal Gastrointestinal: Denies abdominal pain, Denies diarrhea, Denies nausea, Denies vomiting - Genitourinary (Female) Genitourinary: Denies dysuria, Denies hematuria - Menstruation Menstruation: Reports as per HPI - Musculoskeletal Comment: Multiple sclerosis, transverse myelitis, psoriatic arthritis Musculoskeletal: Reports as per HPI - Integumentary Integumentary: Denies pruritus, Denies rash - Neurological Neurological: Reports as per HPI - Psychiatric Psychiatric: Denies anxiety, Denies depression - Endocrine Endocrine: Reports as per HPI - Hematologic/Lymphatic Comment: none - Allergic/Immunologic Allergic/Immunologic: Reports seasonal allergies Objective - Constitutional General appearance: Present: cooperative - EENT Eyes: Present: EOMI ENT: Present: hearing grossly normal - Neck Neck: Present: normal ROM - Respiratory Respiratory: bilateral: CTA - Cardiovascular Rhythm: regular Heart sounds: normal: S1, S2 - Integumentary Integumentary: Present: normal turgor - Musculoskeletal Musculoskeletal Comment(s): uses a walker - Psychiatric Psychiatric: Present: A&O x's 3, appropriate affect, intact judgment & insight - Additional findings Additional findings: Breast Exam: BRA: 38C Inspection: fulness right breast 12 o'clock position right breast, well-healed scar right breast from prior surgery, right grade 2 ptosis, left grade 3 ptosis The patient: Right breast: Multiple positional exam fibrocystic changes, well-healed scar from prior surgery, at the 12 o'clock position is approximately a 1 by 2 cm area of fullness corresponding to her seroma was previously aspirated this is nontender and smaller than on her prior exam Right axilla: No adenopathy of concern Left breast: as per exam of 04-29-22 Multi-positional exam fibrocystic changes no dominant masses or nodules of concern Left axilla: form 04-29-22 No adenopathy of concern Assessment and Plan Assessment: Mammogram personally reviewed with Dr. Rock from radiology, at this time it is felt that the area in the right breast is corresponding to postoperative changes and repeat right breast mammogram in 6 months is recommended Impression/Plan: Multiple sclerosis Transverse myelitis Psoriatic arthritis Hypothyroid Diet-controlled diabetes Positive history of flat epithelial atypia/atypical hyperplasia right breast Recent bilateral mammogram BIRADS 3 repeat right breast mammogram in 6 months We have talked about chemoprevention and at this time the patient has declined CC: Dr. Nicole
== END | disposition home or self-care (01) ==
LOC: RADMAMWWP 08:26
PROVIDERS: ATTEND Surgery
DX: R92.8 Other abnormal and inconclusive findings on diagnostic imaging of breast (principal)
CPT/HCPCS: 77066; G0279; 77062

== ENCOUNTER → 2022-06-30 | Outpatient (CLI) | payer MEDICARE ==
[2022-06-30 08:45] VITALS: BP 126/72; PULSE 110; RESP 17; TEMP 98
== END | disposition home or self-care (01) ==
LOC: WWCWWP 08:25
PROVIDERS: ATTEND Surgery
DX: Z53.9 Procedure and treatment not carried out, unspecified reason (principal)

== ENCOUNTER → 2022-11-01 | Outpatient (CLI) | payer MEDICARE ==
--- NOTE | 2022-11-02 07:33 | US ---
EXAMINATION TYPE: US pelvic complete DATE OF EXAM: 11/01/2022 COMPARISON: NONE CLINICAL HISTORY: N93.8 OTHER SPECIFIED ABNORMAL UTERINE AND VAGINAL BLEEDING. Pt states increase in vaginal bleeding this last year TECHNIQUE: Transabdominal (TA). Transabdominal sonographic images of the pelvis were acquired. Pt did not want TV at this time Date of LMP: Pt states 3 months ago EXAM MEASUREMENTS: Uterus: 10.4 x 6.2 x 6.0 cm Endometrial Stripe: 1.1 cm Right Ovary: 3.9 x 2.3 x 2.9 cm Left Ovary: 2.7 x 2.3 x 2.1 cm 1. Uterus: Anteverted Heterogeneous, echogenic area posterior uterine body= 4.6 x 2.3 x 4.2 cm 2. Endometrium: ?thickened for pt's age 3. Right Ovary: Cyst= 3.3 x 2.1 x 2.0 cm 4. Left Ovary: wnl 5. Bilateral Adnexa: wnl 6. Posterior cul-de-sac: wnl IMPRESSION: Findings may reflect leiomyoma of the posterior uterine body. Right ovarian cyst.
== END | disposition home or self-care (01) ==
LOC: RADUSWWP 15:41
PROVIDERS: ATTEND Family Medicine
DX: N83.201 Unspecified ovarian cyst, right side (principal); N93.8 Other specified abnormal uterine and vaginal bleeding
CPT/HCPCS: 76856

== ENCOUNTER → 2022-12-29 | Outpatient (CLI) | payer MEDICARE ==
--- NOTE | 2022-12-29 11:51 | MM ---
Reason for Exam: Follow-up at short interval from prior study. Last screening mammogram was performed 6 month(s) ago. Patient History: Menarche at age 19. First Full-Term at age 21. Patient has history of breast feeding. Hormonal Contraceptives for 6 months until age 50. 12/14/2021, Benign Core Biopsy on the right side. 12/14/2021, Benign Core Biopsy on the right side. Maternal grandmother had breast cancer, age 52. Maternal cousin (a) had breast cancer, age 45. Maternal cousin (b) had breast cancer, age 46. Maternal cousin (c) had breast cancer, age 47. Maternal cousin (d) had breast cancer, age 44. Maternal cousin (e) had breast cancer, age 45. Maternal cousin (f) had breast cancer, age 46. Last menstrual period: 09/12/2022 Risk Values: Radhika 5 year model risk: 1.2%. NCI Lifetime model risk: 8.1%. Prior Study Comparison: 08/10/2021 Bilateral Screening Mammogram, [facility]. 08/26/2021 Right Diagnostic Mammogram, [facility]. 06/30/2022 Bilateral MG 3D diag mammo w/cad JIMMY, [facility]. Tissue Density: Right: The breast tissue is heterogeneously dense. This may lower the sensitivity of mammography. Findings: Analyzed By CAD. Postsurgical and posttreatment changes right breast. A single microclip remains from prior biopsy. Chronic nodularity laterally in the right breast. Unchanged asymmetric density inferiorly. No significant change from prior exams. Ongoing short interval follow-up given patient's recent surgery. Overall Assessment: Probably benign, BI-RAD 3 Management: Diagnostic Mammogram of both breasts in 6 months. Ongoing short interval follow-up right breast after recent surgery. Annual exam of the left breast. Results were given to the patient verbally at the time of exam. Patient should continue monthly self-breast exams. A clinical breast exam by your physician is recommended on an annual basis. This exam should not preclude additional follow-up of suspicious palpable abnormalities. Note on Radhika scores and lifetime risk: 1. A Radhika score greater than 3% is considered moderate risk. If this is the case, consider specialist referral to assess eligibility for a risk reducing agent. 2. If overall lifetime risk for the development of breast cancer is 20% or higher, the patient may qualify for future screening with alternating mammogram and breast MRI. Electronically signed and approved by: Fei Rock M.D. Radiologist
== END | disposition home or self-care (01) ==
LOC: RADMAMWWP 11:15
PROVIDERS: ATTEND Surgery
DX: R92.8 Other abnormal and inconclusive findings on diagnostic imaging of breast (principal); Z80.3 Family history of malignant neoplasm of breast
CPT/HCPCS: 77065; G0279; 77061

== ENCOUNTER → 2022-12-29 | Outpatient (CLI) | payer MEDICARE ==
[2022-12-29 12:08] VITALS: BP 135/76; RESP 12; TEMP 98.6
--- NOTE | 2022-12-29 12:20 | P.PN ---
Subjective Progress Note Date: 12/29/22 Principal diagnosis: ADH, flat epitheleal atypia, atypical lobular hyperplasia right breast flat epithelial atypia/atypical lobular hyperplasia right breast atypical ductal hyperplasia Lauren is a 56-year-old white female who on routine screening mammogram was noted to have an area of calcification of concern in the right breast. She underwent stereotactic core biopsy on of 3 sites in the right breast. Site A revealed atypical ductal hyperplasia, site B revealed atypical ductal hyperplasia, and sites C reveal fibroadenomatous and fibrocystic changes. The patient prior to the procedure had not felt any lumps masses or nodules of concern in either breast. She was not complaining of any nipple discharge or skin changes. She did not had any recent trauma or infection in the breast. She did well with the biopsies. Bilateral screening mammogram was from [id number] revealed coarse heterogeneous group clustered calcifications in the right breast. The patient subsequently on had additional views of the right breast which revealed calcifications spanning 4 cm. These were around the 11 o'clock position of the right breast. She had a right breast needle localization and lumpectomy on 12-14-21. Her pathology revealed Flat epithelial atypia/typical ductal hyperplasia, and focal ALH. Both stero biopsy sites of concern were removed. She noted a lump at the site of the biopsy for about 3 months. It flucuates in size. It is not tender. She has not had any fever or chills. She had a bilateral mammogram on 06-30-22 which did not reveal any lesions of concern in the left breast, she did have some postprocedure changes in the right breast repeat right breast mammogram in 6 months was recommended. She was seen and evaluated on and at that time a seroma was noted in the right breast biopsy site. This was aspirated and approximately 45 mL of straw- colored fluid was removed. It has returned however it is decreased in size and is not bothering the patient at this time. Patient believes she still has some fluctuance in the right breast but it is decreased in size and is not bothering her. She is not complaining of any new lumps masses or nodules of concern in either breast. The patient had a right breast mammogram performed on 12-29-22 which was BIRADS 3 and repeat mammogram of both breasts in 6 months was recommended. We have again discussed chemoprevention and at this time the patient has declined. BCP: 15-20 years; stopped 11 years ago hormones: none nicotine: none caffiene: 1 bottle of coke/day chocolate: none Family history: maternal grandmother: breast cancer; about age 50 Hormonal History: menarche: 18 breast fed: yes, first born at 21 menopause: perimenopausal LMP 3 months ago Surgical History: tonsil right breast biopsy Medical History: Multiple sclerosis Transverse myelitis Psoriatic arthritis Hypothyroid Diet-controlled diabetes Social history: Nicotine: Negative Alcohol: Negative Drugs: Negative - Constitutional Constitutional: Denies chills, Denies fever - EENT Eyes: denies blurred vision, denies pain Ears: deny: decreased hearing, tinnitus Ears, nose, mouth and throat: Reports headache, Denies sore throat - Breasts Breasts: bilateral: as per HPI - Cardiovascular Cardiovascular: Denies chest pain, Denies shortness of breath - Respiratory Respiratory: Denies cough - Gastrointestinal Gastrointestinal: Denies abdominal pain, Denies diarrhea, Denies nausea, Denies vomiting - Genitourinary (Female) Genitourinary: Denies dysuria, Denies hematuria - Menstruation Menstruation: Reports as per HPI - Musculoskeletal Comment: Multiple sclerosis, transverse myelitis, psoriatic arthritis Musculoskeletal: Reports as per HPI - Integumentary Integumentary: Denies pruritus, Denies rash - Neurological Neurological: Reports as per HPI - Psychiatric Psychiatric: Denies anxiety, Denies depression - Endocrine Endocrine: Reports as per HPI - Hematologic/Lymphatic Comment: none - Allergic/Immunologic Allergic/Immunologic: Reports seasonal allergies Objective - Constitutional General appearance: Present: cooperative - EENT Eyes: Present: EOMI ENT: Present: hearing grossly normal - Neck Neck: Present: normal ROM - Respiratory Respiratory: bilateral: CTA - Cardiovascular Rhythm: regular Heart sounds: normal: S1, S2 - Gastrointestinal General gastrointestinal: Present: soft - Integumentary Integumentary: Present: normal turgor - Musculoskeletal Musculoskeletal Comment(s): uses a walker - Psychiatric Psychiatric: Present: A&O x's 3, appropriate affect, intact judgment & insight - Additional findings Additional findings: Breast Exam: BRA: 38C Inspection: fulness right breast 12 o'clock position right breast, well-healed scar right breast from prior surgery, right grade 2 ptosis, left grade 3 ptosis Palpation: Right breast: Multiple positional exam fibrocystic changes, well-healed scar from prior surgery, at the 12 o'clock position is approximately a 1 by 2 cm area of fullness corresponding to her seroma was previously aspirated this is nontender and smaller than on her prior exam Right axilla: No adenopathy of concern Left breast: Multi-positional exam fibrocystic changes no dominant masses or nodules of concern Left axilla: No adenopathy of concern Fungal infection under both breast Assessment and Plan Assessment: Impression/Plan: Multiple sclerosis Transverse myelitis Psoriatic arthritis Hypothyroid Diet-controlled diabetes Positive history of flat epithelial atypia/atypical hyperplasia right breast Right breast mammogram 12-29-22 BIRAD 3 bilateral mammogram 6 months appointment at that time We have talked about chemoprevention and at this time the patient has declined, as likewise declined meeting with medical oncology to discuss chemoprevention CC: Dr. Nicole
== END ==
LOC: WWCWWP 11:17
PROVIDERS: ATTEND Surgery
DX: N60.91 Unspecified benign mammary dysplasia of right breast (principal); Z71.3 Dietary counseling and surveillance; E03.9 Hypothyroidism, unspecified; G35 Multiple sclerosis; L40.52 Psoriatic arthritis mutilans; E11.9 Type 2 diabetes mellitus without complications; Z80.3 Family history of malignant neoplasm of breast; Z79.84 Long term (current) use of oral hypoglycemic drugs; Z79.890 Hormone replacement therapy

== ENCOUNTER → 2023-06-30 | Outpatient (CLI) | payer MEDICARE ==
[2023-06-30 15:36] LABS: HCT 37.1 % (37.2-46.3); HGB 11.4 g/dL (12.0-15.0); MCH 29.1 pg (27.0-32.0); MCHC 30.7 g/dL (32.0-37.0); MCV 94.6 FL (80.0-97.0); Mean Platelet Volume 11.2 FL (9.5-12.2); NRBC Per 100 WBC 0 X 10*3/uL (0.00-0.01); Platelet Count 335 X 10*3/uL (140-440); RBC 3.92 X 10*6/uL (4.10-5.20); RDW 14.2 % (11.5-14.5); WBC 7.21 X 10*3/uL (4.50-10.00)
[2023-06-30 15:59] LABS: Erythrocyte Sedimentation Rate 25 mm/Hr (0-30)
[2023-06-30 16:10] LABS: ALT 49 U/L (8-44); AST 49 U/L (13-35); Albumin 4.5 g/dL (3.8-4.9); Albumin/Globulin Ratio 1.45 Ratio (1.60-3.17); Alkaline Phosphatase 87 U/L (41-126); BUN/Creat Ratio 32.44 Ratio (12.00-20.00); Blood Urea Nitrogen 29.2 mg/dL (9.0-27.0); Calcium 10.1 mg/dL (8.7-10.3); Carbon Dioxide 22.5 mmol/L (21.6-31.8); Chloride 106 mmol/L (96-109); Globulin 3.1 g/dL (1.6-3.3); Glucose 135 mg/dL (70-110); Iron 85 UG/DL (50-170); Potassium 5.4 mmol/L (3.5-5.5); Sodium 140 mmol/L (135-145); Total Bilirubin <0.2 mg/dL (0.3-1.2); Total Protein 7.6 g/dL (6.2-8.2)
== END | disposition home or self-care (01) ==
LOC: LABWHC1 08:19
PROVIDERS: ATTEND Family Medicine
DX: E11.9 Type 2 diabetes mellitus without complications (principal); L40.50 Arthropathic psoriasis, unspecified; D64.9 Anemia, unspecified
CPT/HCPCS: 36415; 80053; 82728; 83036; 83540; 85027; 85652; 86140

== ENCOUNTER → 2023-07-03 | Outpatient (CLI) | payer MEDICARE ==
--- NOTE | 2023-07-03 10:25 | MM ---
Reason for Exam: Follow-up at short interval from prior study. Last screening mammogram was performed 12 month(s) ago. Patient History: Menarche at age 19. First Full-Term at age 21. Patient has history of breast feeding. Hormonal Contraceptives for 6 months until age 50. 12/14/2021, Benign Core Biopsy on the right side. 12/14/2021, Benign Core Biopsy on the right side. Maternal grandmother had breast cancer, age 52. Maternal cousin (a) had breast cancer, age 45. Maternal cousin (b) had breast cancer, age 46. Maternal cousin (c) had breast cancer, age 47. Maternal cousin (d) had breast cancer, age 44. Maternal cousin (e) had breast cancer, age 45. Maternal cousin (f) had breast cancer, age 46. Risk Values: Radhika 5 year model risk: 1.2%. NCI Lifetime model risk: 8.1%. Tissue Density: The breast tissue is heterogeneously dense. This may lower the sensitivity of mammography. Findings: Analyzed By CAD. Calcifications within a traumatic coil cyst at the surgical bed right breast. Benign calcifications seen bilaterally. Chronic benign nodularity right breast. Overall Assessment: Benign, BI-RAD 2 Management: Screening Mammogram of both breasts in 1 year. . Results were given to the patient verbally at the time of exam. Patient should continue monthly self-breast exams. A clinical breast exam by your physician is recommended on an annual basis. This exam should not preclude additional follow-up of suspicious palpable abnormalities. Note on Radhika scores and lifetime risk: 1. A Radhika score greater than 3% is considered moderate risk. If this is the case, consider specialist referral to assess eligibility for a risk reducing agent. 2. If overall lifetime risk for the development of breast cancer is 20% or higher, the patient may qualify for future screening with alternating mammogram and breast MRI. Electronically signed and approved by: Aneesh Laurent M.D. Radiologis
== END | disposition home or self-care (01) ==
LOC: RADMAMWWP 09:47
PROVIDERS: ATTEND Surgery
DX: R92.333 Mammographic heterogeneous density, bilateral breasts (principal); R92.1 Mammographic calcification found on diagnostic imaging of breast; Z80.3 Family history of malignant neoplasm of breast
CPT/HCPCS: 77066; G0279; 77062

== ENCOUNTER → 2023-07-20 | Outpatient (CLI) | payer MEDICARE ==
--- NOTE | 2023-07-20 10:33 | P.PN ---
Subjective Progress Note Date: 07/20/23 Principal diagnosis: Atypical ductal hyperplasia ADH, flat epitheleal atypia, atypical lobular hyperplasia right breast flat epithelial atypia/atypical lobular hyperplasia right breast atypical ductal hyperplasia Lauren is a 56-year-old white female who on routine screening mammogram was noted to have an area of calcification of concern in the right breast. She underwent stereotactic core biopsy on of 3 sites in the right breast. Site A revealed atypical ductal hyperplasia, site B revealed atypical ductal hyperplasia, and sites C reveal fibroadenomatous and fibrocystic changes. The patient prior to the procedure had not felt any lumps masses or nodules of co ncern in either breast. She was not complaining of any nipple discharge or skin changes. She did not had any recent trauma or infection in the breast. She did well with the biopsies. Bilateral screening mammogram was from [id number] revealed coarse heterogeneous group clustered calcifications in the right breast. The patient subsequently on had additional views of the right breast which revealed calcifications spanning 4 cm. These were around the 11 o'clock position of the right breast. She had a right breast needle localization and lumpectomy on 12-14-21. Her pathology revealed Flat epithelial atypia/typical ductal hyperplasia, and focal ALH. Both stero biopsy sites of concern were removed. She noted a lump at the site of the biopsy for about 3 months. It flucuates in size. It is not tender. She has not had any fever or chills. She had a bilateral mammogram on 06-30-22 which did not reveal any lesions of concern in the left breast, she did have some postprocedure changes in the right breast repeat right breast mammogram in 6 months was recommended. She was seen and evaluated on and at that time a seroma was noted in the right breast biopsy site. This was aspirated and approximately 45 mL of straw- colored fluid was removed. It has returned however it is decreased in size and is not bothering the patient at this time. Patient believes she still has some fluctuance in the right breast but it is decreased in size and is not bothering her. She is not complaining of any new lumps masses or nodules of concern in either breast. The patient had a right breast mammogram performed on 12-29-22 which was BIRADS 3 and repeat mammogram of both breasts in 6 months was recommended. We have again discussed chemoprevention and at this time the patient has de clined. 07-20-23 The patient had a bilateral mammogramo on 07-03-23 which was BIRAD 2. Not complaining of any new lumps masses or nodules of concern in either breast. BCP: 15-20 years; stopped 11 years ago hormones: none nicotine: none caffiene: 1 bottle of coke/day chocolate: none Family history: maternal grandmother: breast cancer; about age 50 Hormonal History: menarche: 18 breast fed: yes, first born at 21 menopause: perimenopausal LMP 3 months ago Surgical History: tonsil right breast biopsy Medical History: Multiple sclerosis Transverse myelitis Psoriatic arthritis Hypothyroid Diet-controlled diabetes Social history: Nicotine: Negative Alcohol: Negative Drugs: Negative - Constitutional Constitutional: Denies chills, Denies fever - EENT Eyes: denies blurred vision, denies pain Ears: deny: decreased hearing, tinnitus Ears, nose, mouth and throat: Reports headache, Denies sore throat - Breasts Breasts: bilateral: as per HPI - Cardiovascular Cardiovascular: Denies chest pain, Denies shortness of breath - Respiratory Respiratory: Denies cough - Gastrointestinal Gastrointestinal: Denies abdominal pain, Denies diarrhea, Denies nausea, Denies vomiting - Genitourinary (Female) Genitourinary: Denies dysuria, Denies hematuria - Menstruation Menstruation: Reports as per HPI - Musculoskeletal Comment: Multiple sclerosis, transverse myelitis, psoriatic arthritis Musculoskeletal: Reports as per HPI - Integumentary Integumentary: Denies pruritus, Denies rash - Neurological Neurological: Reports as per HPI - Psychiatric Psychiatric: Denies anxiety, Denies depression - Endocrine Endocrine: Reports as per HPI - Hematologic/Lymphatic Comment: none - Allergic/Immunologic Allergic/Immunologic: Reports seasonal allergies Objective - Constitutional General appearance: Present: cooperative - EENT Eyes: Present: EOMI ENT: Present: hearing grossly normal - Neck Neck: Present: normal ROM - Respiratory Respiratory: bilateral: CTA - Cardiovascular Rhythm: regular Heart sounds: normal: S1, S2 - Integumentary Integumentary: Present: normal turgor - Musculoskeletal Musculoskeletal: Present: gait normal - Psychiatric Psychiatric: Present: A&O x's 3, appropriate affect, intact judgment & insight - Additional findings Additional findings: Breast Exam: BRA: 38C Inspection: fulness right breast 12 o'clock position right breast, well-healed scar right breast from prior surgery, right grade 2 ptosis, left grade 3 ptosis Palpation: Right breast: Multiple positional exam fibrocystic changes, well-healed scar from prior surgery, at the 12 o'clock position slight fullness corresponding to area of prior seroma decreased from prior examination no other dominant masses or nodules of concern Right axilla: No adenopathy of concern Left breast: Multi-positional exam fibrocystic changes no dominant masses or nodules of concern Left axilla: No adenopathy of concern Fungal infection under both breast, greater on the left Assessment and Plan Assessment: Impression/Plan: Multiple sclerosis Transverse myelitis Psoriatic arthritis Hypothyroid Diet-controlled diabetes Positive history of flat epithelial atypia/atypical hyperplasia right breast bilateral mammogram on 07-03-23 BIRAD 2 bilateral mammogram 1 year with appointment at that time We have talked about chemoprevention on 07-20-23 and at this time the patient has declined, she likewise declined meeting with medical oncology to discuss chemoprevention CC: Dr. Nicole
[2023-07-20 10:37] VITALS: BP 138/74; PULSE 109; RESP 17; TEMP 97.8
== END ==
LOC: WWCWWP 09:55
PROVIDERS: ATTEND Surgery
DX: Z12.31 Encounter for screening mammogram for malignant neoplasm of breast (principal); J35.1 Hypertrophy of tonsils; G35 Multiple sclerosis; E11.9 Type 2 diabetes mellitus without complications; E03.9 Hypothyroidism, unspecified; N60.11 Diffuse cystic mastopathy of right breast; L40.50 Arthropathic psoriasis, unspecified; Z80.3 Family history of malignant neoplasm of breast; L40.52 Psoriatic arthritis mutilans; Z78.0 Asymptomatic menopausal state; Z79.84 Long term (current) use of oral hypoglycemic drugs

== ENCOUNTER → 2024-07-09 | Outpatient (CLI) | payer MEDICARE, OTHER ==
--- NOTE | 2024-07-09 09:22 | MM ---
Reason for Exam: Additional evaluation requested from prior study. Last screening mammogram was performed 12 month(s) ago. Patient History: Menarche at age 19. First Full-Term at age 21. Postmenopausal. Patient has history of breast feeding. Hormonal Contraceptives for 6 months until age 50. 12/14/2021, Benign Core Biopsy on the right side. 12/14/2021, Benign Core Biopsy on the right side. Maternal grandmother had breast cancer, age 52. Maternal cousin (a) had breast cancer, age 45. Maternal cousin (b) had breast cancer, age 46. Maternal cousin (c) had breast cancer, age 47. Maternal cousin (d) had breast cancer, age 44. Maternal cousin (e) had breast cancer, age 45. Maternal cousin (f) had breast cancer, age 46. Risk Values: Radhika 5 year model risk: 1.2%. NCI Lifetime model risk: 7.9%. Prior Study Comparison: 03/17/2017 Bilateral Screening Mammogram, [facility]. 05/13/2019 Bilateral Screening Mammogram, [facility]. 05/27/2019 Left Diagnostic Mammogram, [facility]. 08/10/2021 Bilateral Screening Mammogram, [facility]. 08/26/2021 Right Diagnostic Mammogram, [facility]. 06/30/2022 Bilateral MG 3D diag mammo w/cad JIMMY, [facility]. 12/29/2022 Right MG 3D diag mammo w/cad RT, [facility]. 07/03/2023 Bilateral MG 3D diag mammo w/cad JIMMY, [facility]. Tissue Density: The breasts are heterogeneously dense, which may obscure small masses. Findings: Analyzed By CAD. Redemonstrated postexcisional changes on the right with some gradually increasing fat necrosis calcifications. Nodularity in the right. Global asymmetry upper outer quadrant left breast is unchanged. Regional diffuse punctate calcifications redemonstrated on the left. New/increased grouped punctate and heterogeneous calcifications anterior 12:00 left breast for which stereotactic biopsy is recommended. Overall Assessment: Suspicious, BI-RAD 4 Management: Stereotactic Core Biopsy of the left breast. Results were given to the patient verbally at the time of exam. [facility], , 07/09/2024 9:18 AM. Electronically signed and approved by: Fei Rock M.D. Radiologist
== END | disposition home or self-care (01) ==
LOC: RADMAMWWP 08:11
PROVIDERS: ATTEND Surgery
DX: R92.8 Other abnormal and inconclusive findings on diagnostic imaging of breast (principal); Z78.0 Asymptomatic menopausal state; Z80.3 Family history of malignant neoplasm of breast; R92.333 Mammographic heterogeneous density, bilateral breasts; N63.10 Unspecified lump in the right breast, unspecified quadrant
CPT/HCPCS: 77062; 77066

== ENCOUNTER → 2024-07-26 | Day surgery (SDC) | payer MEDICARE ==
[~2024-07-26] MED LIST changes: +ALPRAZolam 0.25 MG TAB PO PRN; +ALPRAZolam 0.5 MG TAB PO PRN; -DEXAMETHASONE SOD PHOSPHATE 4 MG/ML 1 ML VIAL IV ONE; -HEPARIN SODIUM,PORCINE/PF 5,000 UNIT/0.5 ML SYRINGE SQ PRN; -HYDROmorphone 0.5 MG/0.5 ML SYRINGE IVP PRN; -LACTATED RINGERS 1,000 ML IV SCH; -LIDOCAINE 1% (10MG/ML) FOR IV START INTRADERMA PRN; -MIDAZOLAM 2 MG/2 ML VIAL IV PRN; -ONDANSETRON 4 MG/2 ML VIAL IVP PRN; -Pre Op ABX Message 1 EACH MISC MISCELLANE ONE; -SCOPOLAMINE 1 MG/72 HR PATCH TRANSDERM ONE
[2024-07-26 07:42] VITALS: BP 110/68; PULSE 100; RESP 16; TEMP 98.3
== END ==
LOC: RADMAMWWP 07:29
PROVIDERS: ATTEND Surgery
DX: Z53.9 Procedure and treatment not carried out, unspecified reason (principal)

== ENCOUNTER → 2024-07-26 | Outpatient (CLI) | payer MEDICARE ==
[2024-07-26 08:13] VITALS: BP 110/68; PULSE 106; RESP 17; TEMP 98.1
--- NOTE | 2024-07-26 08:17 | P.PN ---
Subjective Progress Note Date: 07/26/24 Principal diagnosis: abnormal left breast mammogram 07/26/24 Principal diagnosis: Atypical ductal hyperplasia ADH, flat epitheleal atypia, atypical lobular hyperplasia right breast flat epithelial atypia/atypical lobular hyperplasia right breast atypical ductal hyperplasia Lauren is a 56-year-old white female who on routine screening mammogram was noted to have an area of calcification of concern in the right breast. She underwent stereotactic core biopsy on of 3 sites in the right breast. Site A revealed atypical ductal hyperplasia, site B revealed atypical ductal hyperplasia, and sites C reveal fibroadenomatous and fibrocystic changes. The patient prior to the procedure had not felt any lumps masses or nodules of concern in either breast. She was not complaining of any nipple discharge or skin changes. She did not had any recent trauma or infection in the breast. She did well with the biopsies. Bilateral screening mammogram was from [id number] revealed coarse heterogeneous group clustered calcifications in the right oni ast. The patient subsequently on had additional views of the right breast which revealed calcifications spanning 4 cm. These were around the 11 o'clock position of the right breast. She had a right breast needle localization and lumpectomy on 12-14-21. Her pathology revealed Flat epithelial atypia/typical ductal hyperplasia, and focal ALH. Both stero biopsy sites of concern were removed. She noted a lump at the site of the biopsy for about 3 months. It flucuates in size. It is not tender. She has not had any fever or chills. She had a bilateral mammogram on 06-30-22 which did not reveal any lesions of concern in the left breast, she did have some postprocedure changes in the right breast repeat right breast mammogram in 6 months was recommended. She was seen and evaluated on and at that time a seroma was noted in the right breast biopsy site. This was aspirated and approximately 45 mL of straw- colored fluid was removed. It has returned however it is decreased in size and is not bothering the patient at this time. Patient believes she still has some fluctuance in the right breast but it is decreased in size and is not bothering her. She is not complaining of any new lumps masses or nodules of concern in either breast. The patient had a right breast mammogram performed on 12-29-22 which was BIRADS 3 and repeat mammogram of both breasts in 6 months was recommended. We have again discussed chemoprevention and at this time the patient has declined. 07-20-23 The patient had a bilateral mammogramo on 07-03-23 which was BIRAD 2. Not complaining of any new lumps masses or nodules of concern in either breast. 07-26-24 bilateral mammogram left breast microcalcifications BIRAD 4 stero biopsy recommended personally discussed and reviewed with DR. Alegre from radiology She is not complaining of any lumps masses or nodules of concern in either breast. She is not complaining of any nipple discharge or skin changes. BCP: 15-20 years; stopped 11 years ago hormones: none nicotine: none caffiene: 1 bottle of coke/day chocolate: none Family history: maternal grandmother: breast cancer; about age 50 sister: breast cancer at 59 Hormonal History: menarche: 18 breast fed: yes, first born at 21 menopause: perimenopausal LMP 3 months ago Surgical History: tonsil right breast biopsy Medical History: Multiple sclerosis Transverse myelitis Psoriatic arthritis Hypothyroid Diet-controlled diabetes Social history: Nicotine: Negative Alcohol: Negative Drugs: Negative - Constitutional Constitutional: Denies chills, Denies fever - EENT Eyes: denies blurred vision, denies pain Ears: deny: decreased hearing, tinnitus Ears, nose, mouth and throat: Reports headache, Denies sore throat - Breasts Breasts: bilateral: as per HPI - Cardiovascular Cardiovascular: Denies chest pain, Denies shortness of breath - Respiratory Respiratory: Denies cough - Gastrointestinal Gastrointestinal: Denies abdominal pain, Denies diarrhea, Denies nausea, Denies vomiting - Genitourinary (Female) Genitourinary: Denies dysuria, Denies hematuria - Menstruation Menstruation: Reports as per HPI - Musculoskeletal Comment: Multiple sclerosis, transverse myelitis, psoriatic arthritis Musculoskeletal: Reports as per HPI - Integumentary Integumentary: Denies pruritus, Denies rash - Neurological Neurological: Reports as per HPI - Psychiatric Psychiatric: Denies anxiety, Denies depression - Endocrine Endocrine: Reports as per HPI - Hematologic/Lymphatic Comment: none - Allergic/Immunologic Allergic/Immunologic: Reports seasonal allergies Objective - Constitutional General appearance: Present: cooperative - EENT Eyes: Present: EOMI ENT: Present: hearing grossly normal - Neck Neck: Present: normal ROM - Respiratory Respiratory: bilateral: CTA - Cardiovascular Heart sounds: normal: S1, S2 - Integumentary Integumentary: Present: normal turgor - Musculoskeletal Musculoskeletal: Present: gait normal - Psychiatric Psychiatric: Present: A&O x's 3, appropriate affect, intact judgment & insight - Additional findings Additional findings: Breast Exam: BRA: 38C Inspection: fulness right breast 12 o'clock position right breast, well-healed scar right breast from prior surgery, right grade 2 ptosis, left grade 3 ptosis Palpation: Right breast: Multiple positional exam fibrocystic changes, well-healed scar from prior surgery, at the 12 o'clock position slight fullness corresponding to area of prior seroma decreased from prior examination no other dominant masses or nodules of concern Right axilla: No adenopathy of concern Left breast: Multi-positional exam fibrocystic changes no dominant masses or nodules of concern Left axilla: No adenopathy of concern Assessment and Plan Assessment: Impression: Multiple sclerosis Transverse myelitis Psoriatic arthritis Hypothyroid Diet-controlled diabetes Positive history of flat epithelial atypia/atypical hyperplasia right breast bilateral mammogram 07-09-24 birad 4 microcalcifications left breast recommend stero biopsy We have talked about chemoprevention on 07-20-23 and again on 07-26-24 at that time the patient has declined Plan: Stereotactic core biopsy left breast Risk and benefits are discussed with the patient. Risk include but are not limited to bleeding, infection, reaction to the anesthetic. If the tissue acquisition were felt to be discordant then further tissue may be necessary. The patient understands and wishes to proceed. CC: Dr. Nicole
== END ==
LOC: WWCWWP 08:07
PROVIDERS: ATTEND Surgery
DX: N60.91 Unspecified benign mammary dysplasia of right breast (principal); R92.8 Other abnormal and inconclusive findings on diagnostic imaging of breast; G35 Multiple sclerosis; L40.50 Arthropathic psoriasis, unspecified; E03.9 Hypothyroidism, unspecified; E11.9 Type 2 diabetes mellitus without complications; R92.0 Mammographic microcalcification found on diagnostic imaging of breast; Z80.3 Family history of malignant neoplasm of breast

== ENCOUNTER 2024-08-20 07:48 | Day surgery (SDC) | payer MEDICARE ==
--- NOTE | 2024-08-16 16:25 | P.PN ---
Subjective Progress Note Date: 08/16/24 Principal diagnosis: Microcalcifications of concern left breast Subjective Progress Note Date: 08-16-24 Principal diagnosis: abnormal left breast mammogram 07/26/24 Principal diagnosis: Atypical ductal hyperplasia Lauren is a 58-year-old white female who on a routine screening mammogram on 07-09-2024 was noted to have microcalcifications of concern in the left breast. She was recommended to undergo a stereotactic core biopsy of the left breast. This was personally reviewed with Dr. Alegre from radiology. An attempted stereo biopsy was done on 07-26-24, however the lesion was too superficial and therefore the procedure was terminated and it was recommended she undergo a needle localization and excisional resection. Of significance is the fact that she has undergone a right breast biopsy in the past which revealed ADH/flat epithelial atypia/atypical lobular hyperplasia. She had been noted on routine screening mammogram was noted to have an area of calcification of concern in the right breast. She underwent stereotactic core biopsy on of 3 sites in the right breast. Site A revealed atypical ductal hyperplasia, site B revealed atypical ductal hyperplasia, and sites C reveal fibroadenomatous and fibrocystic changes. The patient prior to the procedure had not felt any lumps masses or nodules of concern in either breast. She was not complaining of any nipple discharge or skin changes. She did not had any recent trauma or infection in the breast. She did well with the biopsies. Bilateral screening mammogram was from [id number] revealed coarse heterogeneous group clustered calcifications in the right breast. The patient subsequently on had additional views of the right breast which revealed calcifications spanning 4 cm. These were around the 11 o'clock position of the right breast. She had a right breast needle localization and lumpectomy on 12-14-21. Her pathology revealed Flat epithelial atypia/typical ductal hyperplasia, and focal ALH. Both stero biopsy sites of concern were removed. She noted a lump at the site of the biopsy for about 3 months. It flucuated in size. It was not tender. We have discussed chemoprevention in the past but the patient has declined. She is not complaining of any lumps masses or nodules of concern in either breast. She is not complaining of any nipple discharge or skin changes. BCP: 15-20 years; stopped 11 years ago hormones: none nicotine: none caffiene: 1 bottle of coke/day chocolate: none Family history: maternal grandmother: breast cancer; about age 50 sister: breast cancer at 59 Hormonal History: menarche: 18 breast fed: yes, first born at 21 menopause: perimenopausal LMP 3 months ago Surgical History: tonsil right breast biopsy Medical History: Multiple sclerosis Transverse myelitis Psoriatic arthritis Hypothyroid Diet-controlled diabetes Social history: Nicotine: Negative Alcohol: Negative Drugs: Negative - Constitutional Constitutional: Denies chills, Denies fever - EENT Eyes: denies blurred vision, denies pain Ears: deny: decreased hearing, tinnitus Ears, nose, mouth and throat: Reports headache, Denies sore throat - Breasts Breasts: bilateral: as per HPI - Cardiovascular Cardiovascular: Denies chest pain, Denies shortness of breath - Respiratory Respiratory: Denies cough - Gastrointestinal Gastrointestinal: Denies abdominal pain, Denies diarrhea, Denies nausea, Denies vomiting - Genitourinary (Female) Genitourinary: Denies dysuria, Denies hematuria - Menstruation Menstruation: Reports as per HPI - Musculoskeletal Comment: Multiple sclerosis, transverse myelitis, psoriatic arthritis Musculoskeletal: Reports as per HPI - Integumentary Integumentary: Denies pruritus, Denies rash - Neurological Neurological: Reports as per HPI - Psychiatric Psychiatric: Denies anxiety, Denies depression - Endocrine Endocrine: Reports as per HPI - Hematologic/Lymphatic Comment: none - Allergic/Immunologic Allergic/Immunologic: Reports seasonal allergies Objective - Vital Signs Vital signs: Intake & Output 08/15/24 08/16/24 08/16/24 18:59 06:59 18:59 Weight 63.049 kg - Constitutional General appearance: Present: cooperative - EENT Eyes: Present: EOMI ENT: Present: hearing grossly normal - Neck Neck: Present: normal ROM - Respiratory Respiratory: bilateral: CTA - Cardiovascular Heart sounds: normal: S1, S2 - Integumentary Integumentary: Present: normal turgor - Psychiatric Psychiatric: Present: A&O x's 3, appropriate affect, intact judgment & insight - Additional findings Additional findings: Breast Exam: BRA: 38C Inspection: fulness right breast 12 o'clock position right breast, well-healed scar right breast from prior surgery, right grade 2 ptosis, left grade 3 ptosis Palpation: Right breast: Multiple positional exam fibrocystic changes, well-healed scar from prior surgery, at the 12 o'clock position slight fullness corresponding to area of prior seroma decreased from prior examination no other dominant masses or nodules of concern Right axilla: No adenopathy of concern Left breast: Multi-positional exam fibrocystic changes no dominant masses or nodules of concern Left axilla: No adenopathy of concern Assessment and Plan Assessment: Impression: Multiple sclerosis Transverse myelitis Psoriatic arthritis Hypothyroid Diet-controlled diabetes Positive history of flat epithelial atypia/atypical hyperplasia right breast bilateral mammogram 07-09-24 birad 4 microcalcifications left breast recommend stero biopsy/2 secondary to the location of the lesion therefore it has been recommended that she undergo a needle localization and excisional biopsy We have talked about chemoprevention on 07-20-23 and again on 07-26-24 at that time the patient has declined Plan: Left breast needle localization excisional biopsy Risk and benefits of the procedure discussed with the patient. Risk include but are not limited to bleeding, infection, reaction to the anesthetic. If adequate tissue acquisition is not obtained further tissue acquisition may be necessary. She understands and wishes to proceed. CC: Dr. Nicole
[~2024-08-20 07:48] MED LIST changes: -ALPRAZolam 0.25 MG TAB PO PRN; -ALPRAZolam 0.5 MG TAB PO PRN; +HYDROmorphone 0.5 MG/0.5 ML SYRINGE IVP PRN; +LACTATED RINGERS 1,000 ML IV SCH; +droPERidol 5 MG/2 ML VIAL IVP ONE
[2024-08-20] MEDS: SODIUM CHLORIDE 0.9% 500 ML 500 ML IV ONE (08:03)
[2024-08-20] MEDS: SODIUM CHLORIDE 0.9% 1,000 ML IV ONE (08:03)
[2024-08-20] MEDS: ACETAMINOPHEN TAB 500 MG TAB PO PRN (08:29)
[2024-08-20 08:33] VITALS: RESP 16
[2024-08-20 08:40] LABS: Glucose,Whole Blood 106 mg/dL (70-110)
[2024-08-20] MEDS: SODIUM BICARB 8.4% 50 ML VIAL (1 MEQ/ML) MISCELLANE ONE (09:16)
[2024-08-20] MEDS: LIDOCAINE 1% INJ 10MG/ML (20 ML MDV) SQ ONE (09:16)
[2024-08-20] MEDS ORDERED: LIDOCAINE 1% INJ 10MG/ML (20 ML MDV) ONE (10:12)
[2024-08-20] MEDS ORDERED: PROPOFOL 10 MG/ML 20 ML VIAL IV ONE (10:12)
[2024-08-20] MEDS ORDERED: PHENYLEPHRINE 10 MG/ML VIAL ONE (10:12)
[2024-08-20] MEDS ORDERED: ACETAMINOPHEN IV (For NPO) 1,000 MG/100 ML VIAL ONE (10:12)
[2024-08-20] MEDS ORDERED: fentaNYL (PF) 50 MCG/ML 2 ML AMP ONE (10:12)
[2024-08-20] MEDS: DEXAMETHASONE SOD PHOSPHATE 4 MG/ML 1 ML VIAL IV ONE (10:12)
[2024-08-20] MEDS: ONDANSETRON 4 MG/2 ML VIAL IVP ONE (10:12)
[2024-08-20] MEDS ORDERED: MIDAZOLAM 2 MG/2 ML VIAL ONE (10:12)
[2024-08-20] MEDS ORDERED: SUCCINYLCHOLINE CHLORIDE 200 MG/10 ML VIAL IV ONE (10:12)
[2024-08-20] MEDS: HEPARIN SODIUM,PORCINE 5,000 UNIT/ML 1 ML VIAL SQ PRN (10:14)
[2024-08-20] MEDS: LIDOCAINE 1% (10MG/ML) FOR IV START INTRADERMA PRN (10:40)
[2024-08-20] MEDS: IV FLUID CONTINUATION 1,000 ML IV ONE (10:54)
--- NOTE | 2024-08-20 11:12 | P.BCAON ---
Date of Procedure: 08/20/24 Preoperative Diagnosis: Microcalcifications of concern left breast Postoperative Diagnosis: Same Procedure(s) Performed: Needle Localization excisional lumpectomy area of concern left breast Anesthesia: MICHELE Surgeon: Lacie Arias Estimated Blood Loss (ml): 3 IV fluids (ml): 100 Pathology: other (Breast tissue) Condition: stable Disposition: same day Indications for Procedure: Calcifications of concern left breast Description of Procedure: The patient was first seen in the radiology department. Needle localization of the area of concern in the left breast was performed. The patient was then brought to the operative suite. Following induction of anesthesia the left breast was prepped and draped in a sterile fashion. An incision was made and carried down to the shaft of the needle. Surrounding tissue was excised. The specimen was painted for orientation. Radiograph of the specimen was performed. After we are sure that hemostasis was attained the wound was well irrigated. Surgicel in powder form was placed. Titanium clips were placed. The deep tissues were closed using 3-0 Vicryl suture. The skin was closed using 4-0 Monocryl. The patient tolerated the procedure in stable condition. Radiograph of the specimen revealed the calcifications of concern.
[2024-08-20 11:32] VITALS: TEMP 97.5
--- NOTE | 2024-08-20 12:31 | MM ---
Reason for Exam: Screening (asymptomatic). Last screening mammogram was performed 2 month(s) ago. Patient History: Menarche at age 19. First Full-Term at age 21. Postmenopausal. Patient has history of breast feeding. Hormonal Contraceptives for 6 months until age 50. 12/14/2021, Benign Core Biopsy on the right side. 12/14/2021, Benign Core Biopsy on the right side. 07/26/2024, MG discontinued stereo core LT on the left side. Maternal grandmother had breast cancer, age 52. Maternal cousin (a) had breast cancer, age 45. Maternal cousin (b) had breast cancer, age 46. Maternal cousin (c) had breast cancer, age 47. Maternal cousin (d) had breast cancer, age 44. Maternal cousin (e) had breast cancer, age 45. Maternal cousin (f) had breast cancer, age 46. Risk Values: Radhika 5 year model risk: 1.2%. NCI Lifetime model risk: 7.9%. Prior Study Comparison: 12/29/2022 Right MG 3D diag mammo w/cad RT, [facility]. 07/03/2023 Bilateral MG 3D diag mammo w/cad JIMMY, [facility]. 07/09/2024 Bilateral MG 3D diag mammo w/cad JIMMY, [facility]. Tissue Density: Left: The breasts are heterogeneously dense, which may obscure small masses. Analyzed By CAD. Overall Assessment: Suspicious, BI-RAD 4 Management: Incisional Biopsy of the left breast. Electronically signed and approved by: Brayan Bee DO
[2024-08-20 13:01] VITALS: BP 114/76; PULSE 73
--- NOTE | 2024-08-20 13:17 | P.BCAON ---
Date of Procedure: 08/20/24 Preoperative Diagnosis: Left breast mass Postoperative Diagnosis: Same Procedure(s) Performed: Excision left breast mass, oncoplastic tissue transfer to close defect 51 cm Anesthesia: KARENA Surgeon: Lacie rAias Estimated Blood Loss (ml): 10 IV fluids (ml): 1,200 Pathology: other (Left breast tissue) Condition: stable Disposition: same day Indications for Procedure: Mass left breast Operative Findings: Dense tissue left breast Description of Procedure: Patient was taken to the operating room following induction of anesthesia the left breast was prepped and draped in a sterile fashion. A periareolar incision was made at the site of the palpable mass. Wide excision of this firm tissue was performed. The tissue had been previously biopsied and was felt to be fat necrosis and scar. The area of scarring and fat necrosis was 5 x 3 cm in size. Tethering at the incision was resected. The cavity was well irrigated. Hemostasis was attained using the electrocautery device as well as Surgicel in powder form. An order to close the defect it was necessary to mobilize tissue superiorly and inferiorly. The superior pedicle was 3 x 6 cm, the inferior pedicle was 3 x 6 cm. The 2 pedicles were brought together and secured in place to close the defect. They were secured using 3-0 Vicryl suture. The wound was irrigated. Surgicel in powder form was placed in the wound. Subcutaneous tissue was closed using 3-0 Vicryl suture. The skin was closed using a running nylon suture. 10 cc of 1% lidocaine were injected into the incision. The patient tolerated the procedure in stable condition. All instruments and sponge counts were correct at the end of the case.
== END 2024-08-20 13:17 | disposition home or self-care (01) ==
LOC: OR 07:48
PROVIDERS: ATTEND Surgery
DX: R92.1 Mammographic calcification found on diagnostic imaging of breast (principal); I10 Essential (primary) hypertension; E78.5 Hyperlipidemia, unspecified; E11.9 Type 2 diabetes mellitus without complications; E07.9 Disorder of thyroid, unspecified; G35 Multiple sclerosis; Z80.3 Family history of malignant neoplasm of breast; Z78.0 Asymptomatic menopausal state; Z79.890 Hormone replacement therapy; Z79.899 Other long term (current) drug therapy
CPT/HCPCS: 76098; 19281; C1819; J2250; J0330; J1644; J1100; J0690; J2405; J2003; J3010; J0131; J2704; J2371; 88307

== ENCOUNTER → 2024-08-30 | Outpatient (CLI) | payer MEDICARE ==
[2024-08-30 10:09] VITALS: BP 108/72; PULSE 75; RESP 16; TEMP 98
--- NOTE | 2024-08-30 10:13 | P.BCPO ---
Progress Note - Text Progress Note Date: 08/30/24 Lauren is status post left bresat needle localization biopsy on 08-20-24 of hte left breaset. Pathology ADH/ margins (-). The procedure without difficulty. Examination: Lungs: Clear Heart: Regular rate and rhythm Incision: Clean and dry Impression: ADH left breast High risk breast cancer Plan: Appointment medical oncology to discuss chemoprophylaxis Follow-up here in 6 months for a left breast mammogram and examination Patient to follow-up sooner any questions or concerns CC; Dr. Garcia Post Op Education - Post Op Education Post Op Education Provided Date: 08/30/24 - Functional Assessment Performed?: Yes (arm abduction passed) Referal Provided?: No Path Report - Was patient given path report? Path Report Date Given: 08/30/24
== END ==
LOC: WWCWWP 09:58
PROVIDERS: ATTEND Surgery
DX: N60.92 Unspecified benign mammary dysplasia of left breast (principal)

== ENCOUNTER → 2025-02-24 | Outpatient (CLI) | payer MEDICARE ==
--- NOTE | 2025-02-24 11:32 | MM ---
Reason for Exam: Follow-up at short interval from prior study. Last screening mammogram was performed 8 month(s) ago. Patient History: Menarche at age 19. First Full-Term at age 21. Postmenopausal. Patient has history of breast feeding. Hormonal Contraceptives for 6 months until age 50. 08/20/2024, Lumpectomy on the Left side. 08/20/2024, High risk MG pre op needle loc LT on the left side. 12/14/2021, Benign Core Biopsy on the right side. 12/14/2021, Benign Core Biopsy on the right side. 07/26/2024, MG discontinued stereo core LT on the left side. Maternal grandmother had breast cancer, age 52. Maternal cousin (a) had breast cancer, age 45. Maternal cousin (b) had breast cancer, age 46. Maternal cousin (c) had breast cancer, age 47. Maternal cousin (d) had breast cancer, age 44. Maternal cousin (e) had breast cancer, age 45. Maternal cousin (f) had breast cancer, age 46. Sister had breast cancer at or over age 50. Risk Values: Radhika 5 year model risk: 3.3%. NCI Lifetime model risk: 18.8%. Prior Study Comparison: 07/03/2023 Bilateral MG 3D diag mammo w/cad JIMMY, [facility]. 07/09/2024 Bilateral MG 3D diag mammo w/cad JIMMY, [facility]. 08/20/2024 Left MG follow up LT no charge, [facility]. Tissue Density: Left: The breasts are heterogeneously dense, which may obscure small masses. Findings: Analyzed By CAD. Postbiopsy changes upper outer quadrant left breast. Stable scattered punctate calcifications. No new masses present. Overall Assessment: Benign, BI-RAD 2 Management: Screening Mammogram of both breasts in 6 months. . Results were given to the patient verbally at the time of exam. Patient should continue monthly self-breast exams. A clinical breast exam by your physician is recommended on an annual basis. This exam should not preclude additional follow-up of suspicious palpable abnormalities. Note on Radhika scores and lifetime risk: 1. A Radhika score greater than 3% is considered moderate risk. If this is the case, consider specialist referral to assess eligibility for a risk reducing agent. 2. If overall lifetime risk for the development of breast cancer is 20% or higher, the patient may qualify for future screening with alternating mammogram and breast MRI. [facility], , 02/24/2025 11:29 AM. Electronically signed and approved by: Aneesh Laurent M.D. Radiologis
== END | disposition home or self-care (01) ==
LOC: RADMAMWWP 10:45
PROVIDERS: ATTEND Surgery
DX: R92.8 Other abnormal and inconclusive findings on diagnostic imaging of breast (principal); R92.332 Mammographic heterogeneous density, left breast; R92.1 Mammographic calcification found on diagnostic imaging of breast; Z78.0 Asymptomatic menopausal state; Z80.3 Family history of malignant neoplasm of breast; Z92.0 Personal history of contraception
CPT/HCPCS: 77065; G0279; 77061

== ENCOUNTER → 2025-02-27 | Outpatient (CLI) | payer MEDICARE ==
[2025-02-27 11:19] VITALS: BP 112/69; PULSE 102; RESP 16; TEMP 97.9
--- NOTE | 2025-02-27 11:28 | P.PN ---
Subjective Progress Note Date: 02/27/25 Left breast needle localization with excisional biopsy of area of microcalcifications Addendum entered and electronically signed by Lacie Arias MD 07/26/24 15:11: The lesion in the left breast was too superficial to do a sterobiopsy. Therefore, a left needle localization and lumpectomy with possible oncoplastic tissue transfer was recommended. Risk and benefits were discussed and she would like to proceed. This is scheduled for the near future. Original Note: Right breast atypical ductal hyperplasia 02-27-25 Lauren is a 59-year-old female who is status post open biopsy of the right breast on several occasions. She underwent stereotactic core biopsy on of 3 sites in the right breast. Site A revealed atypical ductal hyperplasia, site B revealed atypical ductal hyperplasia, and sites C reveal fibroadenomatous and fibrocystic changes. The patient prior to the procedure had not felt any lumps masses or nodules of concern in either breast. She was not complaining of any nipple discharge or skin changes. She did not had any recent trauma or infection in the breast. She did well with the biopsies. Bilateral screening mammogram was from [id number] revealed coarse heterogeneous group clustered calcifications in the right breast. The patient subsequently on had additional views of the right breast which revealed calcifications spanning 4 cm. These were around the 11 o'clock position of the right breast. She had a right breast needle localization and lumpectomy on 12-14-21. Her pathology revealed Flat epithelial atypia/typical ductal hyperplasia, and focal ALH. Both stero biopsy sites of concern were removed. She noted a lump at the site of the biopsy for about 3 months. It flucuates in size. It is not tender. She has not had any fever or chills. A bilateral mammogram in 2023 led to recommendation of a left breast stereotactic core biopsy. The lesion was too superficial and a needle localization excision was performed 08 20 24. Pathology revealed atypical ductal hyperplasia. She had a repeat left breast mammogram on 02-24-2025 which was BI-RADS 2. Radhika 5 year risk: 3.3% lifetime risk: 18.8% We have discussed chemoprevention and the patient has declined. She was seen and discussed possible reloxifene with Dr. Levy on 11-13-24. BCP: 15-20 years; stopped 11 years ago hormones: none nicotine: none caffiene: 1 bottle of coke/day chocolate: none Family history: maternal grandmother: breast cancer; about age 50 sister: breast cancer at 59 Hormonal History: menarche: 18 breast fed: yes, first born at 21 menopause: perimenopausal LMP 3 months ago Surgical History: tonsil right breast biopsy left breast biopsy Medical History: Multiple sclerosis Transverse myelitis Psoriatic arthritis Hypothyroid Diet-controlled diabetes now on Mounjaro Social history: Nicotine: Negative Alcohol: Negative Drugs: Negative - Constitutional Constitutional: Denies chills, Denies fever - EENT Eyes: denies blurred vision, denies pain Ears: deny: decreased hearing, tinnitus Ears, nose, mouth and throat: Reports headache, Denies sore throat - Breasts Breasts: bilateral: as per HPI - Cardiovascular Cardiovascular: Denies chest pain, Denies shortness of breath - Respiratory Respiratory: Denies cough - Gastrointestinal Gastrointestinal: Denies abdominal pain, Denies diarrhea, Denies nausea, Denies vomiting - Genitourinary (Female) Genitourinary: Denies dysuria, Denies hematuria - Menstruation Menstruation: Reports as per HPI - Musculoskeletal Comment: Multiple sclerosis, transverse myelitis, psoriatic arthritis Musculoskeletal: Reports as per HPI - Integumentary Integumentary: Denies pruritus, Denies rash - Neurological Neurological: Reports as per HPI - Psychiatric Psychiatric: Denies anxiety, Denies depression - Endocrine Endocrine: Reports as per HPI - Hematologic/Lymphatic Comment: none - Allergic/Immunologic Allergic/Immunologic: Reports seasonal allergies Objective - Vital Signs Vital signs: Intake & Output 02/26/25 02/27/25 02/27/25 18:59 06:59 18:59 Weight 72.575 kg - Constitutional General appearance: Present: cooperative - EENT Eyes: Present: EOMI ENT: Present: hearing grossly normal - Neck Neck: Present: normal ROM - Respiratory Respiratory: bilateral: CTA - Cardiovascular Rhythm: regular Heart sounds: normal: S1, S2 - Integumentary Integumentary: Present: normal turgor - Musculoskeletal Musculoskeletal: Present: gait normal - Psychiatric Psychiatric: Present: A&O x's 3, appropriate affect, intact judgment & insight - Additional findings Additional findings: Breast Exam: BRA: 38C Inspection: Bilateral grade 3 ptosis Palpation: Right breast:sitting up exam fibrocystic changes, well-healed scar from prior surgery, at the 12 o'clock position slight fullness none worrisome Right axilla: No adenopathy of concern Left breast: sitting up exam fibrocystic changes no dominant masses or nodules of concern Left axilla: No adenopathy of concern Assessment and Plan Assessment: Impression: Multiple sclerosis Transverse myelitis Psoriatic arthritis Hypothyroid Diet-controlled diabetes Positive history of flat epithelial atypia/atypical hyperplasia right breast bilateral mammogram 07-09-24 birad 4 microcalcifications left breast recommend stero biopsy/open biopsy performed secondary to superficial nature of the lesion pathology positive for atypical ductal hyperplasia We have talked about chemoprevention on 07-20-23 and again on 07-26-24 at that time the patient has declined Plan: Repeat bilateral mammogram in June 2025 with appointment at that time Patient to follow-up sooner any questions or concerns CC: Dr. Nicole
== END | disposition home or self-care (01) ==
LOC: WWCWWP 10:36
PROVIDERS: ATTEND Surgery
DX: G35 Multiple sclerosis (principal); L40.50 Arthropathic psoriasis, unspecified; E03.9 Hypothyroidism, unspecified; E11.9 Type 2 diabetes mellitus without complications; Z87.42 Personal history of other diseases of the female genital tract